=== PATIENT | male | born 1965 | race Two or more races ===

== ENCOUNTER 2016-09-12 11:23 | Inpatient (IN) | payer OTHER ==
[2016-09-12 12:04] VITALS: BMI 27.3
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
[2016-09-12] MEDS ORDERED: MENTHOL/PHENOL 1 EACH UD MM PRN (15:02)
[2016-09-12] MEDS ORDERED: guaiFENesin/D-METHORPHAN HB 10 ML UNIT-DOSE CUPS PO PRN (15:02)
[2016-09-12] MEDS ORDERED: IBUPROFEN 400 MG TABLET (FP) PO PRN (15:02)
[2016-09-12] MEDS ORDERED: P-EPHED 60MG/TRIPROLIDI 2.5MG TABLET PO PRN (15:02)
[2016-09-12] MEDS ORDERED: diphenhydrAMINE HCL 50 MG CAPSULE PO PRN (15:02)
[2016-09-12] MEDS ORDERED: ACETAMINOPHEN 325 MG TABLET (FP) PO PRN (15:02)
[2016-09-12] MEDS ORDERED: LOPERAMIDE HCL 2 MG CAPSULE PO PRN (15:02)
[2016-09-12] MEDS ORDERED: MAG HYDROX/AL HYDROX/SIMETH 30 ML UNIT-DOSE CUP PO PRN (15:02)
[2016-09-12] MEDS ORDERED: hydrOXYzine PAMOATE 50 MG CAPSULE (FP) PO PRN (15:02)
[2016-09-12] MEDS ORDERED: MAGNESIUM CITRATE 300 ML BOTTLE PO PRN (15:02)
[2016-09-12] MEDS ORDERED: chlordiazePOXIDE HCL 25 MG CAPSULE PO PRN (15:02)
[2016-09-12] MEDS ORDERED: MAGNESIUM HYDROX 2400MG/30ML ORAL SUSPENSION 30 ML CUP PO PRN (15:02)
[2016-09-12] MEDS ORDERED: ALBUTEROL SO4 6.7 GM HFA INHALER IH PRN (15:05)
[2016-09-12] MEDS ORDERED: chlordiazePOXIDE HCL 25 MG CAPSULE PO ONE (15:10)
[2016-09-12] MEDS ORDERED: amLODIPine BESYLATE 10 MG TABLET (FP) PO SCH (15:15)
[2016-09-12] MEDS: NIFEdipine E.R. 90 MG TABLET (FP) PO SCH (15:37)
[2016-09-12] MEDS: ISOSORBIDE MONONITRATE 30 MG TAB.SR.24H (FP) PO SCH (15:37)
[2016-09-12] MEDS: LISINOPRIL 10 MG TABLET (FP) PO SCH (15:37)
[2016-09-12 16:44] LABS: URINE APPEARANCE CLEAR; URINE BILIRUBIN NEGATIVE (NEGATIVE); URINE BLOOD NEGATIVE (NEGATIVE); URINE COLOR YELLOW; URINE GLUCOSE (UA) NEGATIVE (NEGATIVE); URINE KETONE NEGATIVE (NEGATIVE); URINE NITRITE NEGATIVE (NEGATIVE); URINE UROBILINOGEN NEGATIVE E.U./dl (0.2-1.0)
[2016-09-12 17:09] LABS: URINE LEUK ESTERASE 1+ (NEGATIVE); URINE PROTEIN 1+ (NEGATIVE)
[2016-09-12] MEDS: chlordiazePOXIDE HCL 25 MG CAPSULE PO SCH ×2 (17:58→22:18)
[2016-09-12] MEDS: THIAMINE HCL 100 MG TABLET (FP) PO SCH (22:17)
[2016-09-12] MEDS: ATORVASTATIN CA 40 MG TABLET (FP) PO SCH (22:17)
[2016-09-12] MEDS: hydrALAZINE HCL 50 MG TABLET (FP) PO SCH (22:17)
[2016-09-13] MEDS: chlordiazePOXIDE HCL 25 MG CAPSULE PO SCH ×4 (05:56→22:03)
--- NOTE | 2016-09-13 09:59 | PN ---
S CIWA - CIWA Score Nausea/Vomitin Muscle Tremors: 3 Anxiety: 3 Agitation: 2 Paroxysmal Sweats: 1-Minimal Palms Moist Orientation: 0-Oriented Tacttile Disturbances: 1-Very Mild Itch/Numbness Auditory Disturbances: 1-Very Mild Visual Disturbances: 1-Very Mild Sensitivity Headache: 2-Mild CIWA-Ar Total Score: 17 BHS Progress Note (SOAP) Subjective: ALERT,IRRITABLE,ANXIOUS,INTERRUPTED SLEEP,TREMOR,PAIN IN THE BODY Objective: 09/13/16 09:57 Vital Signs Temperature 97.4 F L 09/13/16 06:34 Pulse Rate 62 09/13/16 06:34 Respiratory Rate 18 09/13/16 06:34 Blood Pressure 136/82 09/13/16 06:34 O2 Sat by Pulse Oximetry (%) EKG MSR,INVERTED T IN 2,V4 TO V6 NO CHEST PAIN,NO SOB,NO DIZZINESS Laboratory Last Values Urine Color Yellow 09/12/16 15:30 Urine Appearance Clear 09/12/16 15:30 Urine pH 5.0 (5.0-8.0) 09/12/16 15:30 Ur Specific [place] 1.028 (1.001-1.035) 09/12/16 15:30 Urine Protein 1+ (NEGATIVE) H 09/12/16 15:30 Urine Glucose (UA) Negative (NEGATIVE) 09/12/16 15:30 Urine Ketones Negative (NEGATIVE) 09/12/16 15:30 Urine Blood Negative (NEGATIVE) 09/12/16 15:30 Urine Nitrite Negative (NEGATIVE) 09/12/16 15:30 Urine Bilirubin Negative (NEGATIVE) 09/12/16 15:30 Urine Urobilinogen Negative E.U./dl (0.2-1.0) 09/12/16 15:30 Ur Leukocyte Esterase 1+ (NEGATIVE) H 09/12/16 15:30 LABS PENDING Assessment: 09/13/16 09:59 WITHDRAWAL SYMPTOM Plan: CONTINUE DETOX
[2016-09-13 10:16] LABS: MCHC 32.7 g/dl (32.0-35.9); MEAN CELL VOLUME 91.9 fl (80-96); MEAN PLT VOLUME 8.8 fl (7.5-11.1); PLATELET COUNT 248 K/MM3 (134-434); RDW 14.5 % (11.9-15.9); WHITE BLOOD COUNT 11.2 K/mm3 (4.0-10.0)
[2016-09-13] MEDS: PRENATAL VITAMINS W/ FOLIC ACID TABLET (FP) PO SCH (10:25)
[2016-09-13] MEDS: NIFEdipine E.R. 90 MG TABLET (FP) PO SCH (10:26)
[2016-09-13] MEDS: LISINOPRIL 10 MG TABLET (FP) PO SCH (10:26)
[2016-09-13] MEDS: NICOTINE POLACRILEX 4 MG GUM BUC PRN (10:26)
[2016-09-13] MEDS: NICOTINE 21 MG/24 HOURS TOPICAL PATCH TD SCH (10:26)
[2016-09-13] MEDS: hydrALAZINE HCL 50 MG TABLET (FP) PO SCH ×2 (10:26→22:03)
[2016-09-13] MEDS: ISOSORBIDE MONONITRATE 30 MG TAB.SR.24H (FP) PO SCH (10:26)
[2016-09-13 10:33] LABS: ALBUMIN 3.6 g/dl (3.4-5.0); BILIRUBIN,TOTAL 0.8 mg/dL (0.2-1.0); CALCIUM 9.5 mg/dL (8.5-10.1); CREATININE 1.4 mg/dL (0.7-1.3); TOT PROT 6.9 g/dl (6.4-8.2)
--- NOTE | 2016-09-13 11:08 | EKG ---
Test Reason : Blood Pressure : / mmHG Vent. Rate : 060 BPM Atrial Rate : 060 BPM P-R Int : 154 ms QRS Dur : 114 ms QT Int : 458 ms P-R-T Axes : 070 041 147 degrees QTc Int : 458 ms NORMAL SINUS RHYTHM VOLTAGE CRITERIA FOR LEFT VENTRICULAR HYPERTROPHY T WAVE ABNORMALITY, CONSIDER INFEROLATERAL ISCHEMIA ABNORMAL ECG NO PREVIOUS ECGS AVAILABLE Confirmed by MARIPOSA SHERMAN MD ([id number]) on 09/13/2016 11:07:33 AM Referred By: Carlton Wood Confirmed By:MARIPOSA SHERMAN MD
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
[2016-09-13] MEDS: THIAMINE HCL 100 MG TABLET (FP) PO SCH (22:02)
[2016-09-13] MEDS: ATORVASTATIN CA 40 MG TABLET (FP) PO SCH (22:03)
[2016-09-13] MEDS: ZOLPIDEM TARTRATE 10 MG TABLET (PARK CARE ONLY) PO PRN (22:04)
[2016-09-14] MEDS: chlordiazePOXIDE HCL 25 MG CAPSULE PO SCH ×2 (06:13→10:32)
[2016-09-14] MEDS: LISINOPRIL 10 MG TABLET (FP) PO SCH (10:32)
[2016-09-14] MEDS: NIFEdipine E.R. 90 MG TABLET (FP) PO SCH (10:32)
[2016-09-14] MEDS: ISOSORBIDE MONONITRATE 30 MG TAB.SR.24H (FP) PO SCH (10:32)
[2016-09-14] MEDS: PRENATAL VITAMINS W/ FOLIC ACID TABLET (FP) PO SCH (10:32)
[2016-09-14] MEDS: hydrALAZINE HCL 50 MG TABLET (FP) PO SCH ×2 (10:32→22:26)
[2016-09-14] MEDS: NICOTINE 21 MG/24 HOURS TOPICAL PATCH TD SCH (10:33)
[2016-09-14] MEDS: NICOTINE POLACRILEX 4 MG GUM BUC PRN (10:33)
--- NOTE | 2016-09-14 11:12 | PN ---
S CIWA - CIWA Score Nausea/Vomitin-No Nausea/No Vomiting Muscle Tremors: 3 Anxiety: 3 Agitation: 4-Moderately Restless Paroxysmal Sweats: 3 Orientation: 0-Oriented Tacttile Disturbances: 0-None Auditory Disturbances: 0-None Visual Disturbances: 0-None Headache: 0-None Present CIWA-Ar Total Score: 13 BHS Progress Note (SOAP) Subjective: Anxiety,tremors,interrupted sleep,restless Objective: 09/14/16 11:11 Vital Signs - 8 hr 09/14/16 09/14/16 09/14/16 03:18 06:26 07:33 Temperature 98 F Pulse Rate 64 70 Respiratory 20 18 Rate Blood Pressure 160/99 147/79 09/14/16 09/14/16 07:49 09:39 Temperature 97.0 F L Pulse Rate 70 71 Respiratory 20 Rate Blood Pressure 147/79 142/88 Laboratory Tests 09/12/16 09/13/16 09/13/16 15:30 06:00 06:00 WBC 11.2 H RBC 3.79 L Hgb 11.4 L Hct 34.8 L MCV 91.9 MCHC 32.7 RDW 14.5 Plt Count 248 MPV 8.8 Sodium 144 Potassium 3.8 Chloride 107 Carbon Dioxide 27 Anion Gap 10 BUN 20 H D Creatinine 1.4 H Creat Clearance w eGFR 53.86 Random Glucose 95 Calcium 9.5 Total Bilirubin 0.8 D AST 31 D ALT 34 Alkaline Phosphatase 47 Total Protein 6.9 Albumin 3.6 Urine Color Yellow Urine Appearance Clear Urine pH 5.0 Ur Specific [place] 1.028 Urine Protein 1+ H Urine Glucose (UA) Negative Urine Ketones Negative Urine Blood Negative Urine Nitrite Negative Urine Bilirubin Negative Urine Urobilinogen Negative Ur Leukocyte Esterase 1+ H RPR Titer 09/13/16 06:00 WBC RBC Hgb Hct MCV MCHC RDW Plt Count MPV Sodium Potassium Chloride Carbon Dioxide Anion Gap BUN Creatinine Creat Clearance w eGFR Random Glucose Calcium Total Bilirubin AST ALT Alkaline Phosphatase Total Protein Albumin Urine Color Urine Appearance Urine pH Ur Specific [place] Urine Protein Urine Glucose (UA) Urine Ketones Urine Blood Urine Nitrite Urine Bilirubin Urine Urobilinogen Ur Leukocyte Esterase RPR Titer Nonreactive labs noted Assessment: 09/14/16 11:12 Withdrawal sx. Plan: Continue detox
[2016-09-14] MEDS: chlordiazePOXIDE 5 MG CAPSULE PO SCH ×2 (17:31→22:27)
[2016-09-14 22:03] VITALS: TEMP 98.4
[2016-09-14] MEDS: ZOLPIDEM TARTRATE 10 MG TABLET (PARK CARE ONLY) PO PRN (22:26)
[2016-09-14] MEDS: THIAMINE HCL 100 MG TABLET (FP) PO SCH (22:26)
[2016-09-14] MEDS: ATORVASTATIN CA 40 MG TABLET (FP) PO SCH (22:27)
[2016-09-15] MEDS: chlordiazePOXIDE 5 MG CAPSULE PO SCH (06:04)
[2016-09-15 06:30] VITALS: BP 156/92; PULSE 66
--- NOTE | 2016-09-15 12:06 | DS ---
[facility] Detox Discharge Summary Admission Date: 09/12/16 Discharge Date: 09/15/16 - History Present History: Alcohol Dependence, Cocaine Dependence Additional Comments: ADVISED PATIENT TO FOLLOW-UP WITH [facility] / REHAB MEDICAL PROVIDER AFTER DISCHARGE FROM DETOX FOR GENERAL MEDICAL ASSESSMENT AND FOR ANY ABNORMAL ADMISSION LAB VALUES. Pertinent Past History: HTN. - Physical Exam Results Vital Signs: Vital Signs Temperature 98.4 F 09/15/16 06:30 Pulse Rate 66 09/15/16 06:30 Respiratory Rate 18 09/15/16 06:30 Blood Pressure 156/92 09/15/16 06:30 O2 Sat by Pulse Oximetry (%) Pertinent Admission Physical Exam Findings: WITHDRAWAL SYMPTOMS. Laboratory Last Values WBC 11.2 K/mm3 (4.0-10.0) H 09/13/16 06:00 RBC 3.79 M/mm3 (4.00-5.60) L 09/13/16 06:00 Hgb 11.4 GM/dL (11.7-16.9) L 09/13/16 06:00 Hct 34.8 % (35.4-49) L 09/13/16 06:00 MCV 91.9 fl (80-96) 09/13/16 06:00 MCHC 32.7 g/dl (32.0-35.9) 09/13/16 06:00 RDW 14.5 % (11.9-15.9) 09/13/16 06:00 Plt Count 248 K/MM3 (134-434) 09/13/16 06:00 MPV 8.8 fl (7.5-11.1) 09/13/16 06:00 Sodium 144 mmol/L (136-145) 09/13/16 06:00 Potassium 3.8 mmol/L (3.5-5.1) 09/13/16 06:00 Chloride 107 mmol/L (98-107) 09/13/16 06:00 Carbon Dioxide 27 mmol/L (21-32) 09/13/16 06:00 Anion Gap 10 (8-16) 09/13/16 06:00 BUN 20 mg/dL (7-18) H D 09/13/16 06:00 Creatinine 1.4 mg/dL (0.7-1.3) H 09/13/16 06:00 Creat Clearance w eGFR 53.86 (>60) 09/13/16 06:00 Random Glucose 95 mg/dL (74-106) 09/13/16 06:00 Calcium 9.5 mg/dL (8.5-10.1) 09/13/16 06:00 Total Bilirubin 0.8 mg/dL (0.2-1.0) D 09/13/16 06:00 AST 31 U/L (15-37) D 09/13/16 06:00 ALT 34 U/L (12-78) 09/13/16 06:00 Alkaline Phosphatase 47 U/L (45-117) 09/13/16 06:00 Total Protein 6.9 g/dl (6.4-8.2) 09/13/16 06:00 Albumin 3.6 g/dl (3.4-5.0) 09/13/16 06:00 Urine Color Yellow 09/12/16 15:30 Urine Appearance Clear 09/12/16 15:30 Urine pH 5.0 (5.0-8.0) 09/12/16 15:30 Ur Specific [place] 1.028 (1.001-1.035) 09/12/16 15:30 Urine Protein 1+ (NEGATIVE) H 09/12/16 15:30 Urine Glucose (UA) Negative (NEGATIVE) 09/12/16 15:30 Urine Ketones Negative (NEGATIVE) 09/12/16 15:30 Urine Blood Negative (NEGATIVE) 09/12/16 15:30 Urine Nitrite Negative (NEGATIVE) 09/12/16 15:30 Urine Bilirubin Negative (NEGATIVE) 09/12/16 15:30 Urine Urobilinogen Negative E.U./dl (0.2-1.0) 09/12/16 15:30 Ur Leukocyte Esterase 1+ (NEGATIVE) H 09/12/16 15:30 RPR Titer Nonreactive (NONREACTIVE) 09/13/16 06:00 LABS NOTED. - Treatment Hospital Course: Detox Protocol Followed, Detoxed Safely, Responded well, Discharged Condition Good, Rehab Referral Accepted Patient has Accepted a Rehab Referral to: YES - [facility]. - Medication Discharge Medications: Ambulatory Orders Bupropion HCl [Wellbutrin Xl -] 150 mg PO DAILY 06/02/16 Lisinopril [Prinivil] 10 mg PO DAILY 06/02/16 Nifedipine [Nifedipine ER] 90 mg PO DAILY 06/02/16 Albuterol Sulfate Inhaler - [Ventolin Hfa Inhaler -] 2 inh PO Q4H PRN 09/12/16 Amlodipine Besylate [Norvasc -] 10 mg PO DAILY 09/12/16 Atorvastatin Ca [Lipitor] 40 mg PO HS 09/12/16 Isosorbide Mononitrate [Isosorbide Mononitrate ER] 30 mg PO DAILY 09/12/16 Multivit-Min/FA/Lycopen/Lutein [Centrum Silver Tablet] 1 each PO DAILY 09/12/16 Bupropion HCl [Wellbutrin Xl -] 150 mg PO DAILY #30 tab.sr.24h 09/13/16 Hydralazine HCl [Apresoline -] 50 mg PO BID 30 Days 09/15/16 - Diagnosis (1) Alcohol dependence with uncomplicated withdrawal Status: Acute (2) Cocaine dependence, uncomplicated Status: Acute (3) Nicotine dependence Status: Chronic Qualifiers: Nicotine product type: cigarettes Substance use status: uncomplicated Qualified Code(s): F17.210 - Nicotine dependence, cigarettes, uncomplicated (4) Hypertension Status: Chronic Qualifiers: Hypertension type: essential hypertension Qualified Code(s): I10 - Essential (primary) hypertension (5) MDD (major depressive disorder) Status: Chronic Qualifiers: Major depression recurrence: recurrent Active/Remission status: remission status unspecified Qualified Code(s): F33.9 - Major depressive disorder, recurrent, unspecified (6) PTSD (post-traumatic stress disorder) Status: Chronic (7) Insomnia Status: Acute - AMA Did Patient Leave Against Medical Advice: No
[2016-09-15] MEDS ORDERED: chlordiazePOXIDE HCL 10 MG CAPSULE PO SCH (17:00)
== END 2016-09-15 10:32 | disposition home or self-care (01) | DRG 774 ==
LOC: YASAS 11:23 → Y3N 13:40
PROVIDERS: ADMIT Internal Medicine; ATTEND Internal Medicine
PROC: HZ2ZZZZ Detoxification Services for Substance Abuse Treatment (ICD-10-PCS; principal; 2016-09-15)
DX: F10.230 Alcohol dependence with withdrawal, uncomplicated (principal); F14.20 Cocaine dependence, uncomplicated; F17.210 Nicotine dependence, cigarettes, uncomplicated; F33.9 Major depressive disorder, recurrent, unspecified; F43.10 Post-traumatic stress disorder, unspecified; G47.00 Insomnia, unspecified; I10 Essential (primary) hypertension
CPT/HCPCS: 36415; 80053; 81003; 81015; 85027; 86593; 93005; 93010

== ENCOUNTER 2017-01-22 15:16 | Inpatient (IN) | payer OTHER ==
[2017-01-22 17:03] VITALS: BMI 25.3
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
[2017-01-22] MEDS ORDERED: MENTHOL/PHENOL 1 EACH UD MM PRN (21:02)
[2017-01-22] MEDS ORDERED: guaiFENesin/D-METHORPHAN HB 10 ML UNIT-DOSE CUPS PO PRN (21:02)
[2017-01-22] MEDS ORDERED: IBUPROFEN 400 MG TABLET (FP) PO PRN (21:02)
[2017-01-22] MEDS ORDERED: ACETAMINOPHEN 325 MG TABLET (FP) PO PRN (21:02)
[2017-01-22] MEDS ORDERED: LOPERAMIDE HCL 2 MG CAPSULE PO PRN (21:02)
[2017-01-22] MEDS ORDERED: MAG HYDROX/AL HYDROX/SIMETH 30 ML UNIT-DOSE CUP PO PRN (21:02)
[2017-01-22] MEDS ORDERED: MAGNESIUM HYDROX 2400MG/30ML ORAL SUSPENSION 30 ML CUP PO PRN (21:02)
[2017-01-22] MEDS ORDERED: chlordiazePOXIDE HCL 25 MG CAPSULE PO PRN (21:02)
[2017-01-22] MEDS ORDERED: MAGNESIUM CITRATE 300 ML BOTTLE PO PRN (21:02)
[2017-01-22] MEDS ORDERED: P-EPHED 60MG/TRIPROLIDI 2.5MG TABLET PO PRN (21:02)
[2017-01-22] MEDS ORDERED: NICOTINE POLACRILEX 2 MG GUM BC PRN (21:09)
[2017-01-22] MEDS ORDERED: hydrOXYzine PAMOATE 50 MG CAPSULE (FP) PO PRN (21:09)
[2017-01-22] MEDS: AMOXICILLIN 500 MG CAPSULE (FP) PO SCH (22:39)
[2017-01-22] MEDS: THIAMINE HCL 100 MG TABLET (FP) PO SCH (22:39)
[2017-01-22] MEDS: diphenhydrAMINE HCL 50 MG CAPSULE PO PRN (22:39)
[2017-01-22] MEDS: chlordiazePOXIDE HCL 25 MG CAPSULE PO SCH (22:39)
[2017-01-22] MEDS: NIFEdipine E.R. 30 MG TABLET (FP) PO SCH (22:39)
[2017-01-23] MEDS: LISINOPRIL 20 MG TABLET (FP) PO SCH (06:02)
[2017-01-23] MEDS: chlordiazePOXIDE HCL 25 MG CAPSULE PO SCH ×5 (06:02→22:37)
[2017-01-23] MEDS: FUROSEMIDE 20 MG TABLET (FP) PO SCH (07:30)
[2017-01-23] MEDS: AMOXICILLIN 500 MG CAPSULE (FP) PO SCH ×4 (07:30→22:37)
[2017-01-23] MEDS: NIFEdipine E.R 60 MG TABLET (UD) PO SCH (07:31)
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
[2017-01-23] MEDS: PRENATAL VITAMINS W/ FOLIC ACID TABLET (FP) PO SCH (10:16)
[2017-01-23 10:34] LABS: MCH 30.8 pg (25.7-33.7); MEAN CELL VOLUME 90.4 fl (80-96); MEAN PLT VOLUME 8.3 fl (7.5-11.1); PLATELET COUNT 250 K/MM3 (134-434); RDW 14.5 % (11.9-15.9); WHITE BLOOD COUNT 9.3 K/mm3 (4.0-10.0)
[2017-01-23 10:37] LABS: ALBUMIN 2.9 g/dl (3.4-5.0); ANION GAP 6 (8-16); CALCIUM 8.8 mg/dL (8.5-10.1); CO2 29 mmol/L (21-32); CREATININE 1.3 mg/dL (0.7-1.3); GLUCOSE,RANDOM 82 mg/dL (74-106); SGOT/AST 20 U/L (15-37); SGPT/ALT 23 U/L (12-78)
[2017-01-23 10:39] LABS: ALK PHOS 44 U/L (45-117); BILIRUBIN,TOTAL 0.6 mg/dL (0.2-1.0); TOT PROT 6.1 g/dl (6.4-8.2)
--- NOTE | 2017-01-23 10:51 | PN ---
S CIWA - CIWA Score Nausea/Vomitin Muscle Tremors: 4-Moderate,w/Arms Extend Anxiety: 3 Agitation: 4-Moderately Restless Paroxysmal Sweats: 3 Orientation: 0-Oriented Tacttile Disturbances: 0-None Auditory Disturbances: 0-None Visual Disturbances: 0-None Headache: 0-None Present CIWA-Ar Total Score: 16 S Progress Note (SOAP) Subjective: Anxiety,tremors,sweating,interrupted sleep,restless Objective: 01/23/17 10:50 Vital Signs - 8 hr 01/23/17 01/23/17 03:30 09:55 Temperature 97.9 F Pulse Rate 69 Respiratory 18 18 Rate Blood Pressure 149/89 Laboratory Last Values WBC 9.3 K/mm3 (4.0-10.0) 01/23/17 06:30 RBC 3.87 M/mm3 (4.00-5.60) L 01/23/17 06:30 Hgb 11.9 GM/dL (11.7-16.9) 01/23/17 06:30 Hct 35.0 % (35.4-49) L 01/23/17 06:30 MCV 90.4 fl (80-96) 01/23/17 06:30 MCH 30.8 pg (25.7-33.7) 01/23/17 06:30 MCHC 34.0 g/dl (32.0-35.9) 01/23/17 06:30 RDW 14.5 % (11.9-15.9) 01/23/17 06:30 Plt Count 250 K/MM3 (134-434) 01/23/17 06:30 MPV 8.3 fl (7.5-11.1) 01/23/17 06:30 Sodium 142 mmol/L (136-145) 01/23/17 06:30 Potassium 4.1 mmol/L (3.5-5.1) 01/23/17 06:30 Chloride 107 mmol/L (98-107) 01/23/17 06:30 Carbon Dioxide 29 mmol/L (21-32) 01/23/17 06:30 Anion Gap 6 (8-16) L 01/23/17 06:30 BUN 23 mg/dL (7-18) H 01/23/17 06:30 Creatinine 1.3 mg/dL (0.7-1.3) 01/23/17 06:30 Creat Clearance w eGFR 58.67 (>60) 01/23/17 06:30 Random Glucose 82 mg/dL (74-106) 01/23/17 06:30 Calcium 8.8 mg/dL (8.5-10.1) 01/23/17 06:30 Total Bilirubin 0.6 mg/dL (0.2-1.0) D 01/23/17 06:30 AST 20 U/L (15-37) D 01/23/17 06:30 ALT 23 U/L (12-78) D 01/23/17 06:30 Alkaline Phosphatase 44 U/L (45-117) L 01/23/17 06:30 Total Protein 6.1 g/dl (6.4-8.2) L 01/23/17 06:30 Albumin 2.9 g/dl (3.4-5.0) L 01/23/17 06:30 labs noted Assessment: 01/23/17 10:51 Withdrawal sx. Plan: Continue detox
--- NOTE | 2017-01-23 14:07 | EKG ---
Test Reason : Blood Pressure : / mmHG Vent. Rate : 061 BPM Atrial Rate : 061 BPM P-R Int : 148 ms QRS Dur : 104 ms QT Int : 450 ms P-R-T Axes : 066 054 242 degrees QTc Int : 453 ms NORMAL SINUS RHYTHM POSSIBLE LEFT ATRIAL ENLARGEMENT LEFT VENTRICULAR HYPERTROPHY ABNORMAL ECG WHEN COMPARED WITH ECG OF 12-SEP-2016 14:43, T WAVE INVERSION MORE EVIDENT IN INFERIOR LEADS AND V3 CL Confirmed by REHAN ZUNIGA MD ([id number]) on 01/23/2017 2:07:34 PM Referred By: Carlton Wood Confirmed By:REHAN ZUNIGA MD
--- NOTE | 2017-01-23 14:23 | EKG ---
Test Reason : Blood Pressure : / mmHG Vent. Rate : 067 BPM Atrial Rate : 067 BPM P-R Int : 142 ms QRS Dur : 098 ms QT Int : 418 ms P-R-T Axes : 062 043 259 degrees QTc Int : 441 ms NORMAL SINUS RHYTHM POSSIBLE LEFT ATRIAL ENLARGEMENT LEFT VENTRICULAR HYPERTROPHY T WAVE ABNORMALITY, CONSIDER INFEROLATERAL ISCHEMIA ABNORMAL ECG WHEN COMPARED WITH ECG OF 22-JAN-2017 21:09, T WAVES ARE UPRIGHT IN V3 Confirmed by REHAN ZUNIGA MD ([id number]) on 01/23/2017 2:23:37 PM Referred By: Carlton Wood Confirmed By:REHAN ZUNIGA MD
[2017-01-23] MEDS: THIAMINE HCL 100 MG TABLET (FP) PO SCH ×3 (22:30→22:46)
[2017-01-23] MEDS: NIFEdipine E.R. 30 MG TABLET (FP) PO SCH ×3 (22:30→22:46)
[2017-01-24] MEDS: AMOXICILLIN 500 MG CAPSULE (FP) PO SCH ×3 (06:21→22:17)
[2017-01-24] MEDS: chlordiazePOXIDE HCL 25 MG CAPSULE PO SCH ×3 (06:22→17:21)
[2017-01-24] MEDS: LISINOPRIL 20 MG TABLET (FP) PO SCH ×2 (06:22→22:17)
[2017-01-24] MEDS: FUROSEMIDE 20 MG TABLET (FP) PO SCH (06:22)
[2017-01-24] MEDS: NIFEdipine E.R 60 MG TABLET (UD) PO SCH (06:22)
[2017-01-24] MEDS: PRENATAL VITAMINS W/ FOLIC ACID TABLET (FP) PO SCH (10:28)
--- NOTE | 2017-01-24 12:47 | PN ---
S CIWA - CIWA Score Nausea/Vomitin-Int. Nausea w/Dry Heave Muscle Tremors: 2 Anxiety: 4-Mod. Anxious/Guarded Agitation: 0-Normal Activity Paroxysmal Sweats: 3 Orientation: 2-Disoriented Date<2 days Tacttile Disturbances: 2-Mild Itch/Numbness/Burn Auditory Disturbances: 0-None Visual Disturbances: 0-None Headache: 2-Mild CIWA-Ar Total Score: 19 BHS Progress Note (SOAP) Subjective: Sweating, Nausea, H/A, Stomach cramping. Objective: PT. A & O X 2 (DISORIENTED ABOUT DAY /DATE). NO ACUTE DISTRESS. PT. DENIES CHEST PAIN. 01/24/17 12:44 Vital Signs Temperature 97.0 F L 01/24/17 09:04 Pulse Rate 58 L 01/24/17 09:04 Respiratory Rate 18 01/24/17 09:04 Blood Pressure 147/91 01/24/17 09:04 O2 Sat by Pulse Oximetry (%) Laboratory Tests 01/23/17 01/23/17 01/23/17 06:30 06:30 06:30 WBC 9.3 RBC 3.87 L Hgb 11.9 Hct 35.0 L MCV 90.4 MCH 30.8 MCHC 34.0 RDW 14.5 Plt Count 250 MPV 8.3 Sodium 142 Potassium 4.1 Chloride 107 Carbon Dioxide 29 Anion Gap 6 L BUN 23 H Creatinine 1.3 Creat Clearance w eGFR 58.67 Random Glucose 82 Calcium 8.8 Total Bilirubin 0.6 D AST 20 D ALT 23 D Alkaline Phosphatase 44 L Total Protein 6.1 L Albumin 2.9 L RPR Titer Nonreactive LABS NOTED. 01/24/17 14:21 Assessment: 01/24/17 12:45 WITHDRAWAL SYMPTOMS. Plan: CONTINUE DETOX. CONTINUE TO MONITOR BP. PATIENT DECLINING TO SUBMIT URINE FOR ADMISSION UA. PATIENT ENCOURAGED TO RE- CONSIDER AND SUBMIT URINE.
[2017-01-24] MEDS: THIAMINE HCL 100 MG TABLET (FP) PO SCH (22:16)
[2017-01-24] MEDS: diphenhydrAMINE HCL 50 MG CAPSULE PO PRN (22:17)
[2017-01-24] MEDS: chlordiazePOXIDE 5 MG CAPSULE PO SCH (22:17)
[2017-01-24] MEDS: NIFEdipine E.R. 30 MG TABLET (FP) PO SCH (22:17)
[2017-01-25] MEDS: FUROSEMIDE 20 MG TABLET (FP) PO SCH (06:13)
[2017-01-25] MEDS: LISINOPRIL 20 MG TABLET (FP) PO SCH ×2 (06:13→22:14)
[2017-01-25] MEDS: chlordiazePOXIDE 5 MG CAPSULE PO SCH ×3 (06:14→17:44)
[2017-01-25] MEDS: AMOXICILLIN 500 MG CAPSULE (FP) PO SCH ×3 (06:14→22:14)
[2017-01-25] MEDS: NIFEdipine E.R 60 MG TABLET (UD) PO SCH (06:14)
[2017-01-25] MEDS: PRENATAL VITAMINS W/ FOLIC ACID TABLET (FP) PO SCH (10:44)
--- NOTE | 2017-01-25 13:05 | PN ---
BHS Progress Note (SOAP) Subjective: Tremors, Sweating, Stomach Cramping. Objective: PT. A & O X 3, OBSERVED AMBULATING ON UNIT. NO ACUTE DISTRESS. PT. DENIES CHEST PAIN. 01/25/17 13:03 Vital Signs Temperature 96.7 F L 01/25/17 09:38 Pulse Rate 67 01/25/17 09:38 Respiratory Rate 18 01/25/17 09:38 Blood Pressure 155/106 01/25/17 09:38 O2 Sat by Pulse Oximetry (%) Laboratory Tests 01/23/17 01/23/17 01/23/17 06:30 06:30 06:30 WBC 9.3 RBC 3.87 L Hgb 11.9 Hct 35.0 L MCV 90.4 MCH 30.8 MCHC 34.0 RDW 14.5 Plt Count 250 MPV 8.3 Sodium 142 Potassium 4.1 Chloride 107 Carbon Dioxide 29 Anion Gap 6 L BUN 23 H Creatinine 1.3 Creat Clearance w eGFR 58.67 Random Glucose 82 Calcium 8.8 Total Bilirubin 0.6 D AST 20 D ALT 23 D Alkaline Phosphatase 44 L Total Protein 6.1 L Albumin 2.9 L RPR Titer Nonreactive LABS NOTED. UA RESULTS PENDING. 01/25/17 13:04 Assessment: 01/25/17 13:04 WITHDRAWAL SYMPTOMS. Plan: CONTINUE DETOX.
[2017-01-25 15:26] LABS: URINE APPEARANCE CLEAR; URINE BILIRUBIN NEGATIVE (NEGATIVE); URINE BLOOD NEGATIVE (NEGATIVE); URINE COLOR COLORLESS; URINE GLUCOSE (UA) 1+ (NEGATIVE); URINE KETONE NEGATIVE (NEGATIVE); URINE LEUK ESTERASE NEGATIVE (NEGATIVE); URINE NITRITE NEGATIVE (NEGATIVE); URINE PROTEIN NEGATIVE (NEGATIVE); URINE UROBILINOGEN NEGATIVE mg/dL (0.2-1.0)
[2017-01-25] MEDS: NIFEdipine E.R. 30 MG TABLET (FP) PO SCH (22:14)
[2017-01-25] MEDS: chlordiazePOXIDE HCL 10 MG CAPSULE PO SCH (22:14)
[2017-01-25] MEDS: THIAMINE HCL 100 MG TABLET (FP) PO SCH (22:14)
[2017-01-25] MEDS: diphenhydrAMINE HCL 50 MG CAPSULE PO PRN (22:15)
[2017-01-26] MEDS: NIFEdipine E.R 60 MG TABLET (UD) PO SCH (05:57)
[2017-01-26] MEDS: LISINOPRIL 20 MG TABLET (FP) PO SCH (05:57)
[2017-01-26] MEDS: FUROSEMIDE 20 MG TABLET (FP) PO SCH (05:57)
[2017-01-26] MEDS: AMOXICILLIN 500 MG CAPSULE (FP) PO SCH (05:57)
[2017-01-26] MEDS: chlordiazePOXIDE HCL 10 MG CAPSULE PO SCH (06:10)
[2017-01-26 06:21] VITALS: BP 167/102; PULSE 59; TEMP 97.5
--- NOTE | 2017-01-26 12:08 | DS ---
[facility] Detox Discharge Summary Admission Date: 01/22/17 Discharge Date: 01/26/17 - History Present History: Alcohol Dependence, Cannabis Dependence, Cocaine Dependence Additional Comments: PATIENT GOING TO [facility]. PATIENT ADVISED TO FOLLOW-UP THERE FOR AFTERCARE PER DISCHARGE ARRANGEMENT. PATIENT REPORTS THAT HE DOES CURRENTLY HAVE A PRIMARY CARE MEDICAL PROVIDER. PATIENT ADVISED TO FOLLOW-UP WITH THAT MEDICAL PROVIDER FOR GENERAL MEDICAL ASSESSMENT AND FOR HISTORY OF HTN AND ANGINA. PATIENT ALSO ADVISED TO COMPLETE FULL COURSE OF AMOXICILLIN THAT HE IS CURRRENTLY TAKING FOR DENTAL ABSCESS AND TO FOLLOW-UP WITH DENTIST FOR FURTHER EVALUATION AFTER DISCHARGE FROM DETOX. PATIENT VERBALIZED UNDERSTANDING OF ALL INSTRUCTIONS / RECOMMENDATIONS. Pertinent Past History: Asthma, HTN, Angina, PTSD, Insomnia, H/O Dental Abscess, Varicose Veins of Bilateral Lower Extremities. - Physical Exam Results Vital Signs: Vital Signs Temperature 97.5 F L 01/26/17 06:21 Pulse Rate 59 L 01/26/17 06:21 Respiratory Rate 18 01/26/17 06:21 Blood Pressure 167/102 01/26/17 06:21 O2 Sat by Pulse Oximetry (%) Pertinent Admission Physical Exam Findings: WITHDRAWAL SYMPTOMS. Laboratory Tests 01/23/17 01/23/17 01/23/17 06:30 06:30 06:30 WBC 9.3 RBC 3.87 L Hgb 11.9 Hct 35.0 L MCV 90.4 MCH 30.8 MCHC 34.0 RDW 14.5 Plt Count 250 MPV 8.3 Sodium 142 Potassium 4.1 Chloride 107 Carbon Dioxide 29 Anion Gap 6 L BUN 23 H Creatinine 1.3 Creat Clearance w eGFR 58.67 Random Glucose 82 Calcium 8.8 Total Bilirubin 0.6 D AST 20 D ALT 23 D Alkaline Phosphatase 44 L Total Protein 6.1 L Albumin 2.9 L Urine Color Urine Appearance Urine pH Ur Specific Dolphin Urine Protein Urine Glucose (UA) Urine Ketones Urine Blood Urine Nitrite Urine Bilirubin Urine Urobilinogen Ur Leukocyte Esterase RPR Titer Nonreactive 01/25/17 10:00 WBC RBC Hgb Hct MCV MCH MCHC RDW Plt Count MPV Sodium Potassium Chloride Carbon Dioxide Anion Gap BUN Creatinine Creat Clearance w eGFR Random Glucose Calcium Total Bilirubin AST ALT Alkaline Phosphatase Total Protein Albumin Urine Color Colorless Urine Appearance Clear Urine pH 6.0 Ur Specific [place]olphin 1.015 Urine Protein Negative Urine Glucose (UA) 1+ H Urine Ketones Negative Urine Blood Negative Urine Nitrite Negative Urine Bilirubin Negative Urine Urobilinogen Negative Ur Leukocyte Esterase Negative RPR Titer LABS NOTED. - Treatment Hospital Course: Detox Protocol Followed, Detoxed Safely, Responded well, Discharged Condition Good, Rehab Referral Accepted - Medication Discharge Medications: Ambulatory Orders Amoxicillin - [Amoxicillin 500mg Capsule -] 500 mg PO TID 01/22/17 Nifedipine [Procardia Capsule -] 30 mg PO HS 01/22/17 Bupropion HCl [Wellbutrin Xl -] 150 mg PO DAILY #30 tab.sr.24h 01/24/17 Furosemide [Lasix -] 20 mg PO DAILY #30 mg 01/26/17 Lisinopril [Prinivil] 20 mg PO DAILY #30 mg 01/26/17 Nifedipine [Procardia Xl] 30 mg PO ASDIR #90 mg 01/26/17 - Diagnosis (1) Alcohol dependence with uncomplicated withdrawal Status: Acute (2) Cocaine dependence, uncomplicated Status: Acute (3) H/O dental abscess Status: Acute (4) Insomnia Status: Acute Qualifiers: Insomnia type: unspecified Qualified Code(s): G47.00 - Insomnia, unspecified (5) Marihuana dependence Status: Acute (6) Nicotine dependence Status: Chronic Qualifiers: Nicotine product type: cigarettes Substance use status: uncomplicated Qualified Code(s): F17.210 - Nicotine dependence, cigarettes, uncomplicated (7) Substance induced mood disorder Status: Acute (8) Varicose veins of both lower extremities Status: Chronic (9) Asthma Status: Chronic Qualifiers: Asthma severity: mild intermittent Asthma complication type: uncomplicated Qualified Code(s): J45.20 - Mild intermittent asthma, uncomplicated (10) Hypertension Status: Chronic Qualifiers: Hypertension type: essential hypertension Qualified Code(s): I10 - Essential (primary) hypertension (11) PTSD (post-traumatic stress disorder) Status: Chronic - AMA Did Patient Leave Against Medical Advice: No
== END 2017-01-26 08:58 | disposition home or self-care (01) | DRG 774 ==
LOC: YASAS 15:16 → Y3N 21:19
PROVIDERS: ADMIT Internal Medicine; ATTEND Internal Medicine
PROC: HZ2ZZZZ Detoxification Services for Substance Abuse Treatment (ICD-10-PCS; principal; 2017-01-22)
DX: F10.230 Alcohol dependence with withdrawal, uncomplicated (principal); F14.20 Cocaine dependence, uncomplicated; F12.20 Cannabis dependence, uncomplicated; F17.210 Nicotine dependence, cigarettes, uncomplicated; F19.24 Other psychoactive substance dependence with psychoactive substance-induced mood disorder; F43.10 Post-traumatic stress disorder, unspecified; F33.9 Major depressive disorder, recurrent, unspecified; I83.93 Asymptomatic varicose veins of bilateral lower extremities; J45.20 Mild intermittent asthma, uncomplicated; I10 Essential (primary) hypertension; I20.9 Angina pectoris, unspecified; K04.7 Periapical abscess without sinus; K76.0 Fatty (change of) liver, not elsewhere classified; Z86.69 Personal history of other diseases of the nervous system and sense organs; Z87.438 Personal history of other diseases of male genital organs
CPT/HCPCS: 36415; 80053; 81003; 85027; 86593; 93005; 93010

== ENCOUNTER 2017-05-22 13:51 | Inpatient (IN) | payer OTHER ==
[2017-05-22 15:21] VITALS: BMI 27.0
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
[2017-05-22] MEDS ORDERED: LOPERAMIDE HCL 2 MG CAPSULE PO PRN (20:47)
[2017-05-22] MEDS ORDERED: guaiFENesin/D-METHORPHAN HB 10 ML UNIT-DOSE CUPS PO PRN (20:47)
[2017-05-22] MEDS ORDERED: NICOTINE POLACRILEX 2 MG GUM BC PRN (20:47)
[2017-05-22] MEDS ORDERED: MENTHOL/PHENOL 1 EACH UD MM PRN (20:47)
[2017-05-22] MEDS ORDERED: P-EPHED 60MG/TRIPROLIDI 2.5MG TABLET PO PRN (20:47)
[2017-05-22] MEDS ORDERED: MAGNESIUM HYDROX 2400MG/30ML ORAL SUSPENSION 30 ML CUP PO PRN (20:47)
[2017-05-22] MEDS ORDERED: MAGNESIUM CITRATE 300 ML BOTTLE PO PRN (20:47)
[2017-05-22] MEDS ORDERED: NICOTINE 14 MG/24 HOURS TOPICAL PATCH TD PRN (20:47)
[2017-05-22] MEDS ORDERED: ACETAMINOPHEN 325 MG TABLET (FP) PO PRN (20:47)
[2017-05-22] MEDS ORDERED: MAG HYDROX/AL HYDROX/SIMETH 30 ML UNIT-DOSE CUP PO PRN (20:47)
[2017-05-22] MEDS ORDERED: chlordiazePOXIDE HCL 25 MG CAPSULE PO PRN (20:47)
[2017-05-22] MEDS ORDERED: ALBUTEROL SO4 18 GM HFA INHALER IH PRN (20:55)
[2017-05-22] MEDS: THIAMINE HCL 100 MG TABLET (FP) PO SCH (21:35)
[2017-05-22] MEDS: SENNOSIDES 8.6MG TABLET (FP) PO SCH ×2 (21:35→22:52)
[2017-05-22] MEDS: chlordiazePOXIDE HCL 25 MG CAPSULE PO SCH (22:52)
[2017-05-23] MEDS: chlordiazePOXIDE HCL 25 MG CAPSULE PO SCH ×4 (05:21→22:35)
[2017-05-23] MEDS ORDERED: ISOSORBIDE MONONITRATE 60 MG TAB.SR.24H (FP) PO SCH (08:00)
[2017-05-23] MEDS ORDERED: NIFEdipine 10 MG CAPSULE (FP) PO SCH (08:00)
[2017-05-23] MEDS ORDERED: CYCLOBENZAPRINE HCL 10 MG TABLET (FP) PO PRN (09:36)
[2017-05-23 10:11] LABS: MCH 29.7 pg (25.7-33.7); MCHC 32.7 g/dl (32.0-35.9); MEAN CELL VOLUME 91.1 fl (80-96); MEAN PLT VOLUME 8.7 fl (7.5-11.1); PLATELET COUNT 238 K/MM3 (134-434); RDW 14.1 % (11.9-15.9); WHITE BLOOD COUNT 12.7 K/mm3 (4.0-10.0)
[2017-05-23] MEDS: PRENATAL VITAMINS W/ FOLIC ACID TABLET (FP) PO SCH (10:18)
[2017-05-23] MEDS: LISINOPRIL 20 MG TABLET (FP) PO SCH (10:18)
[2017-05-23] MEDS: NIFEdipine E.R. 90 MG TABLET (FP) PO SCH (10:18)
[2017-05-23] MEDS: ASPIRIN 81 MG CHEWABLE TABLETS PO SCH (10:18)
[2017-05-23] MEDS: ISOSORBIDE MONONITRATE 60 MG TAB.SR.24H (FP) PO SCH (10:19)
[2017-05-23 10:44] LABS: PH,URINE 5.5 (5.0-8.0); URINE APPEARANCE CLEAR; URINE BILIRUBIN NEGATIVE (NEGATIVE); URINE BLOOD NEGATIVE (NEGATIVE); URINE COLOR LT. YELLOW; URINE GLUCOSE (UA) TRACE (NEGATIVE); URINE KETONE NEGATIVE (NEGATIVE); URINE NITRITE NEGATIVE (NEGATIVE); URINE PROTEIN NEGATIVE (NEGATIVE); URINE UROBILINOGEN 0.2 mg/dL (0.2-1.0)
[2017-05-23 10:54] LABS: ALK PHOS 49 U/L (45-117); ANION GAP 5 (8-16); BILIRUBIN,TOTAL 0.8 mg/dL (0.2-1.0); CALCIUM 8.7 mg/dL (8.5-10.1); CO2 28 mmol/L (21-32); CREATININE 1.4 mg/dL (0.7-1.3); GLUCOSE,RANDOM 86 mg/dL (74-106); SGOT/AST 15 U/L (15-37); SGPT/ALT 17 U/L (12-78); TOT PROT 6.1 g/dl (6.4-8.2)
--- NOTE | 2017-05-23 11:03 | PN ---
[facility] CIWA - CIWA Score Nausea/Vomitin-No Nausea/No Vomiting Muscle Tremors: 4-Moderate,w/Arms Extend Anxiety: 4-Mod. Anxious/Guarded Agitation: 4-Moderately Restless Paroxysmal Sweats: 1-Minimal Palms Moist Orientation: 0-Oriented Tacttile Disturbances: 3-Moderate Itch/Numb/Burn Auditory Disturbances: 0-None Visual Disturbances: 0-None Headache: 0-None Present CIWA-Ar Total Score: 16 S Progress Note (SOAP) Subjective: ANXIETY,BODY ACHES,DIARRHEA, INTERMITTENT SLEEP. PT REPORTS BEREAVEMENT X 3 DAYS OF SIGNIFICANT OTHER AND FEELS DOWN IN SPIRIT. REQUESTS TO SEE PSYCH . ALERT O X 3. Objective: 05/23/17 11:00 Vital Signs Temperature 97.4 F L 05/23/17 09:05 Pulse Rate 76 05/23/17 09:05 Respiratory Rate 18 05/23/17 09:05 Blood Pressure 142/87 05/23/17 09:05 O2 Sat by Pulse Oximetry (%) Laboratory Last Values WBC 12.7 K/mm3 (4.0-10.0) H D 05/23/17 07:00 RBC 3.74 M/mm3 (4.00-5.60) L 05/23/17 07:00 Hgb 11.1 GM/dL (11.7-16.9) L 05/23/17 07:00 Hct 34.1 % (35.4-49) L 05/23/17 07:00 MCV 91.1 fl (80-96) 05/23/17 07:00 MCH 29.7 pg (25.7-33.7) 05/23/17 07:00 MCHC 32.7 g/dl (32.0-35.9) 05/23/17 07:00 RDW 14.1 % (11.9-15.9) 05/23/17 07:00 Plt Count 238 K/MM3 (134-434) 05/23/17 07:00 MPV 8.7 fl (7.5-11.1) 05/23/17 07:00 Sodium 142 mmol/L (136-145) 05/23/17 07:00 Potassium 4.0 mmol/L (3.5-5.1) 05/23/17 07:00 Chloride 109 mmol/L (98-107) H 05/23/17 07:00 Carbon Dioxide 28 mmol/L (21-32) 05/23/17 07:00 Anion Gap 5 (8-16) L 05/23/17 07:00 BUN 22 mg/dL (7-18) H 05/23/17 07:00 Creatinine 1.4 mg/dL (0.7-1.3) H 05/23/17 07:00 Creat Clearance w eGFR 53.86 (>60) 05/23/17 07:00 Random Glucose 86 mg/dL (74-106) 05/23/17 07:00 Calcium 8.7 mg/dL (8.5-10.1) 05/23/17 07:00 Total Bilirubin 0.8 mg/dL (0.2-1.0) D 05/23/17 07:00 AST 15 U/L (15-37) D 05/23/17 07:00 ALT 17 U/L (12-78) D 05/23/17 07:00 Alkaline Phosphatase 49 U/L (45-117) 05/23/17 07:00 Total Protein 6.1 g/dl (6.4-8.2) L 05/23/17 07:00 Albumin 3.0 g/dl (3.4-5.0) L 05/23/17 07:00 Urine Color Lt. yellow 05/22/17 00:00 Urine Appearance Clear 05/22/17 00:00 Urine pH 5.5 (5.0-8.0) 05/22/17 00:00 Ur Specific [place] 1.020 (1.001-1.035) 05/22/17 00:00 Urine Protein Negative (NEGATIVE) 05/22/17 00:00 Urine Glucose (UA) Trace (NEGATIVE) H 05/22/17 00:00 Urine Ketones Negative (NEGATIVE) 05/22/17 00:00 Urine Blood Negative (NEGATIVE) 05/22/17 00:00 Urine Nitrite Negative (NEGATIVE) 05/22/17 00:00 Urine Bilirubin Negative (NEGATIVE) 05/22/17 00:00 Urine Urobilinogen 0.2 mg/dL (0.2-1.0) 05/22/17 00:00 Assessment: 05/23/17 11:01 WITHDRAWAL SX Plan: CONTINUE DETOX
--- NOTE | 2017-05-23 12:47 | EKG ---
Test Reason : Blood Pressure : / mmHG Vent. Rate : 075 BPM Atrial Rate : 075 BPM P-R Int : 142 ms QRS Dur : 090 ms QT Int : 422 ms P-R-T Axes : 067 044 250 degrees QTc Int : 471 ms SINUS RHYTHM WITH OCCASIONAL PREMATURE VENTRICULAR COMPLEXES POSSIBLE LEFT ATRIAL ENLARGEMENT LEFT VENTRICULAR HYPERTROPHY MARKED T WAVE ABNORMALITY, CONSIDER ANTEROLATERAL ISCHEMIA PROLONGED QT ABNORMAL ECG WHEN COMPARED WITH ECG OF 23-JAN-2017 08:10, PREMATURE VENTRICULAR COMPLEXES ARE NOW PRESENT Confirmed by MARIPOSA SHERMAN MD ([id number]) on 05/23/2017 12:46:54 PM Referred By: Confirmed By:MARIPOSA SHERMAN MD
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
[2017-05-23 20:25] LABS: URINE LEUK ESTERASE Negative (NEGATIVE)
[2017-05-23] MEDS: SENNOSIDES 8.6MG TABLET (FP) PO SCH (22:35)
[2017-05-23] MEDS: THIAMINE HCL 100 MG TABLET (FP) PO SCH (22:35)
--- NOTE | 2017-05-23 23:25 | PN ---
[facility] Progress Note Note: received nurse call that the patient refuses librium 25 mg one dose today
[2017-05-24] MEDS: chlordiazePOXIDE HCL 25 MG CAPSULE PO SCH ×3 (05:34→17:16)
[2017-05-24] MEDS: NIFEdipine E.R. 90 MG TABLET (FP) PO SCH (09:10)
[2017-05-24] MEDS: ISOSORBIDE MONONITRATE 60 MG TAB.SR.24H (FP) PO SCH (09:10)
[2017-05-24] MEDS: LISINOPRIL 20 MG TABLET (FP) PO SCH (09:10)
[2017-05-24] MEDS: PRENATAL VITAMINS W/ FOLIC ACID TABLET (FP) PO SCH (09:10)
[2017-05-24] MEDS: ASPIRIN 81 MG CHEWABLE TABLETS PO SCH (09:10)
--- NOTE | 2017-05-24 10:45 | PN ---
[facility] CIWA - CIWA Score Nausea/Vomitin-No Nausea/No Vomiting Muscle Tremors: 4-Moderate,w/Arms Extend Anxiety: 4-Mod. Anxious/Guarded Agitation: 4-Moderately Restless Paroxysmal Sweats: 1-Minimal Palms Moist Orientation: 0-Oriented Tacttile Disturbances: 3-Moderate Itch/Numb/Burn Auditory Disturbances: 0-None Visual Disturbances: 0-None Headache: 0-None Present CIWA-Ar Total Score: 16 S Progress Note (SOAP) Subjective: ANXIETY, SWEATS,TREMORS, IRRITABILITY, INTERMITTENT SLEEP Objective: 05/24/17 10:55 Vital Signs Temperature 97.9 F 05/24/17 09:08 Pulse Rate 61 05/24/17 09:08 Respiratory Rate 18 05/24/17 09:08 Blood Pressure 152/98 05/24/17 09:08 O2 Sat by Pulse Oximetry (%) Laboratory Last Values WBC 12.7 K/mm3 (4.0-10.0) H D 05/23/17 07:00 RBC 3.74 M/mm3 (4.00-5.60) L 05/23/17 07:00 Hgb 11.1 GM/dL (11.7-16.9) L 05/23/17 07:00 Hct 34.1 % (35.4-49) L 05/23/17 07:00 MCV 91.1 fl (80-96) 05/23/17 07:00 MCH 29.7 pg (25.7-33.7) 05/23/17 07:00 MCHC 32.7 g/dl (32.0-35.9) 05/23/17 07:00 RDW 14.1 % (11.9-15.9) 05/23/17 07:00 Plt Count 238 K/MM3 (134-434) 05/23/17 07:00 MPV 8.7 fl (7.5-11.1) 05/23/17 07:00 Sodium 142 mmol/L (136-145) 05/23/17 07:00 Potassium 4.0 mmol/L (3.5-5.1) 05/23/17 07:00 Chloride 109 mmol/L (98-107) H 05/23/17 07:00 Carbon Dioxide 28 mmol/L (21-32) 05/23/17 07:00 Anion Gap 5 (8-16) L 05/23/17 07:00 BUN 22 mg/dL (7-18) H 05/23/17 07:00 Creatinine 1.4 mg/dL (0.7-1.3) H 05/23/17 07:00 Creat Clearance w eGFR 53.86 (>60) 05/23/17 07:00 Random Glucose 86 mg/dL (74-106) 05/23/17 07:00 Calcium 8.7 mg/dL (8.5-10.1) 05/23/17 07:00 Total Bilirubin 0.8 mg/dL (0.2-1.0) D 05/23/17 07:00 AST 15 U/L (15-37) D 05/23/17 07:00 ALT 17 U/L (12-78) D 05/23/17 07:00 Alkaline Phosphatase 49 U/L (45-117) 05/23/17 07:00 Total Protein 6.1 g/dl (6.4-8.2) L 05/23/17 07:00 Albumin 3.0 g/dl (3.4-5.0) L 05/23/17 07:00 Urine Color Lt. yellow 05/22/17 00:00 Urine Appearance Clear 05/22/17 00:00 Urine pH 5.5 (5.0-8.0) 05/22/17 00:00 Ur Specific [place] 1.020 (1.001-1.035) 05/22/17 00:00 Urine Protein Negative (NEGATIVE) 05/22/17 00:00 Urine Glucose (UA) Trace (NEGATIVE) H 05/22/17 00:00 Urine Ketones Negative (NEGATIVE) 05/22/17 00:00 Urine Blood Negative (NEGATIVE) 05/22/17 00:00 Urine Nitrite Negative (NEGATIVE) 05/22/17 00:00 Urine Bilirubin Negative (NEGATIVE) 05/22/17 00:00 Urine Urobilinogen 0.2 mg/dL (0.2-1.0) 05/22/17 00:00 Ur Leukocyte Esterase Negative (NEGATIVE) 05/22/17 00:00 RPR Titer Nonreactive (NONREACTIVE) 05/23/17 07:00 Assessment: 05/24/17 10:55 WITHDRAWAL SX Plan: CONTINUE DETOX
[2017-05-24] MEDS: SENNOSIDES 8.6MG TABLET (FP) PO SCH (22:29)
[2017-05-24] MEDS: chlordiazePOXIDE 5 MG CAPSULE PO SCH (22:29)
[2017-05-24] MEDS: THIAMINE HCL 100 MG TABLET (FP) PO SCH (22:30)
[2017-05-25] MEDS: chlordiazePOXIDE 5 MG CAPSULE PO SCH ×3 (06:21→10:35)
[2017-05-25] MEDS: NIFEdipine E.R. 90 MG TABLET (FP) PO SCH (07:16)
[2017-05-25] MEDS: ISOSORBIDE MONONITRATE 60 MG TAB.SR.24H (FP) PO SCH (07:16)
[2017-05-25] MEDS: LISINOPRIL 20 MG TABLET (FP) PO SCH (10:34)
[2017-05-25] MEDS: PRENATAL VITAMINS W/ FOLIC ACID TABLET (FP) PO SCH (10:35)
[2017-05-25] MEDS: ASPIRIN 81 MG CHEWABLE TABLETS PO SCH (10:35)
--- NOTE | 2017-05-25 10:53 | PN ---
S Progress Note (SOAP) Subjective: ANXIETY,SWEATS,INTERMITTENT SLEEP. REQUESTING FOR SLEEPING AID. WILL F/U WITH PSYCH MD TODAY. Objective: 05/25/17 10:53 Vital Signs Temperature 96.8 F L 05/25/17 10:00 Pulse Rate 65 05/25/17 10:00 Respiratory Rate 18 05/25/17 10:00 Blood Pressure 148/88 05/25/17 10:00 O2 Sat by Pulse Oximetry (%) Laboratory Last Values WBC 12.7 K/mm3 (4.0-10.0) H D 05/23/17 07:00 RBC 3.74 M/mm3 (4.00-5.60) L 05/23/17 07:00 Hgb 11.1 GM/dL (11.7-16.9) L 05/23/17 07:00 Hct 34.1 % (35.4-49) L 05/23/17 07:00 MCV 91.1 fl (80-96) 05/23/17 07:00 MCH 29.7 pg (25.7-33.7) 05/23/17 07:00 MCHC 32.7 g/dl (32.0-35.9) 05/23/17 07:00 RDW 14.1 % (11.9-15.9) 05/23/17 07:00 Plt Count 238 K/MM3 (134-434) 05/23/17 07:00 MPV 8.7 fl (7.5-11.1) 05/23/17 07:00 Sodium 142 mmol/L (136-145) 05/23/17 07:00 Potassium 4.0 mmol/L (3.5-5.1) 05/23/17 07:00 Chloride 109 mmol/L (98-107) H 05/23/17 07:00 Carbon Dioxide 28 mmol/L (21-32) 05/23/17 07:00 Anion Gap 5 (8-16) L 05/23/17 07:00 BUN 22 mg/dL (7-18) H 05/23/17 07:00 Creatinine 1.4 mg/dL (0.7-1.3) H 05/23/17 07:00 Creat Clearance w eGFR 53.86 (>60) 05/23/17 07:00 Random Glucose 86 mg/dL (74-106) 05/23/17 07:00 Calcium 8.7 mg/dL (8.5-10.1) 05/23/17 07:00 Total Bilirubin 0.8 mg/dL (0.2-1.0) D 05/23/17 07:00 AST 15 U/L (15-37) D 05/23/17 07:00 ALT 17 U/L (12-78) D 05/23/17 07:00 Alkaline Phosphatase 49 U/L (45-117) 05/23/17 07:00 Total Protein 6.1 g/dl (6.4-8.2) L 05/23/17 07:00 Albumin 3.0 g/dl (3.4-5.0) L 05/23/17 07:00 Urine Color Lt. yellow 05/22/17 00:00 Urine Appearance Clear 05/22/17 00:00 Urine pH 5.5 (5.0-8.0) 05/22/17 00:00 Ur Specific [place] 1.020 (1.001-1.035) 05/22/17 00:00 Urine Protein Negative (NEGATIVE) 05/22/17 00:00 Urine Glucose (UA) Trace (NEGATIVE) H 05/22/17 00:00 Urine Ketones Negative (NEGATIVE) 05/22/17 00:00 Urine Blood Negative (NEGATIVE) 05/22/17 00:00 Urine Nitrite Negative (NEGATIVE) 05/22/17 00:00 Urine Bilirubin Negative (NEGATIVE) 05/22/17 00:00 Urine Urobilinogen 0.2 mg/dL (0.2-1.0) 05/22/17 00:00 Ur Leukocyte Esterase Negative (NEGATIVE) 05/22/17 00:00 RPR Titer Nonreactive (NONREACTIVE) 05/23/17 07:00 Assessment: 05/25/17 10:53 WITHDRAWAL SX Plan: CONTINUE DETOX
[2017-05-25] MEDS ORDERED: CYCLOBENZAPRINE HCL 10 MG TABLET (FP) PO PRN (11:33)
--- NOTE | 2017-05-25 12:22 | DS ---
[facility] Detox Discharge Summary Admission Date: 05/22/17 Discharge Date: 05/25/17 - History Present History: Alcohol Dependence, Cocaine Dependence Additional Comments: PT HAS A BED TO REHAB TODAY. ALERT O X 3. NAD. PT IS READY TO GO TO NEXT LEVEL OF CARE. Pertinent Past History: HTN VARICOSE VEINS BOTH LEGS ASTHMA PTSD INSOMNIA - Physical Exam Results Vital Signs: Vital Signs Temperature 96.8 F L 05/25/17 10:00 Pulse Rate 65 05/25/17 10:00 Respiratory Rate 18 05/25/17 10:00 Blood Pressure 148/88 05/25/17 10:00 O2 Sat by Pulse Oximetry (%) Pertinent Admission Physical Exam Findings: WITHDRAWAL SX Laboratory Last Values WBC 12.7 K/mm3 (4.0-10.0) H D 05/23/17 07:00 RBC 3.74 M/mm3 (4.00-5.60) L 05/23/17 07:00 Hgb 11.1 GM/dL (11.7-16.9) L 05/23/17 07:00 Hct 34.1 % (35.4-49) L 05/23/17 07:00 MCV 91.1 fl (80-96) 05/23/17 07:00 MCH 29.7 pg (25.7-33.7) 05/23/17 07:00 MCHC 32.7 g/dl (32.0-35.9) 05/23/17 07:00 RDW 14.1 % (11.9-15.9) 05/23/17 07:00 Plt Count 238 K/MM3 (134-434) 05/23/17 07:00 MPV 8.7 fl (7.5-11.1) 05/23/17 07:00 Sodium 142 mmol/L (136-145) 05/23/17 07:00 Potassium 4.0 mmol/L (3.5-5.1) 05/23/17 07:00 Chloride 109 mmol/L (98-107) H 05/23/17 07:00 Carbon Dioxide 28 mmol/L (21-32) 05/23/17 07:00 Anion Gap 5 (8-16) L 05/23/17 07:00 BUN 22 mg/dL (7-18) H 05/23/17 07:00 Creatinine 1.4 mg/dL (0.7-1.3) H 05/23/17 07:00 Creat Clearance w eGFR 53.86 (>60) 05/23/17 07:00 Random Glucose 86 mg/dL (74-106) 05/23/17 07:00 Calcium 8.7 mg/dL (8.5-10.1) 05/23/17 07:00 Total Bilirubin 0.8 mg/dL (0.2-1.0) D 05/23/17 07:00 AST 15 U/L (15-37) D 05/23/17 07:00 ALT 17 U/L (12-78) D 05/23/17 07:00 Alkaline Phosphatase 49 U/L (45-117) 05/23/17 07:00 Total Protein 6.1 g/dl (6.4-8.2) L 05/23/17 07:00 Albumin 3.0 g/dl (3.4-5.0) L 05/23/17 07:00 Urine Color Lt. yellow 05/22/17 00:00 Urine Appearance Clear 05/22/17 00:00 Urine pH 5.5 (5.0-8.0) 05/22/17 00:00 Ur Specific [place] 1.020 (1.001-1.035) 05/22/17 00:00 Urine Protein Negative (NEGATIVE) 05/22/17 00:00 Urine Glucose (UA) Trace (NEGATIVE) H 05/22/17 00:00 Urine Ketones Negative (NEGATIVE) 05/22/17 00:00 Urine Blood Negative (NEGATIVE) 05/22/17 00:00 Urine Nitrite Negative (NEGATIVE) 05/22/17 00:00 Urine Bilirubin Negative (NEGATIVE) 05/22/17 00:00 Urine Urobilinogen 0.2 mg/dL (0.2-1.0) 05/22/17 00:00 Ur Leukocyte Esterase Negative (NEGATIVE) 05/22/17 00:00 RPR Titer Nonreactive (NONREACTIVE) 05/23/17 07:00 - Treatment Hospital Course: Detox Protocol Followed, Detoxed Safely, Responded well, Discharged Condition Good, Rehab Referral Accepted Patient has Accepted a Rehab Referral to: [facility] - Medication Discharge Medications: Ambulatory Orders Nifedipine [Procardia Capsule -] 30 mg PO HS 01/22/17 Bupropion HCl [Wellbutrin Xl -] 150 mg PO DAILY #30 tab.sr.24h 01/24/17 Furosemide [Lasix -] 20 mg PO DAILY #30 mg 01/26/17 Lisinopril [Prinivil] 20 mg PO DAILY #30 mg 01/26/17 Isosorbide Mononitrate [Isosorbide Mononitrate ER] 60 mg PO DAILY@0800 05/22/17 Bupropion HCl [Bupropion Xl] 150 mg PO DAILY #30 tab.er.24h 05/23/17 - Diagnosis (1) Alcohol dependence with uncomplicated withdrawal Current Visit: Yes Status: Acute (2) Nicotine dependence Current Visit: Yes Status: Acute Qualifiers: Nicotine product type: cigarettes Substance use status: in withdrawal Qualified Code(s): F17.213 - Nicotine dependence, cigarettes, with withdrawal (3) Asthma Current Visit: Yes Status: Chronic Qualifiers: Asthma severity: moderate Asthma complication type: uncomplicated (4) Cocaine dependence, uncomplicated Current Visit: Yes Status: Acute (5) Hypertension Current Visit: Yes Status: Chronic Qualifiers: Hypertension type: essential hypertension Qualified Code(s): I10 - Essential (primary) hypertension (6) Depression (emotion) Current Visit: Yes Status: Suspected Qualifiers: Depression Type: dysthymia Qualified Code(s): F34.1 - Dysthymic disorder - AMA Did Patient Leave Against Medical Advice: No
[2017-05-25 13:41] VITALS: BP 148/95; PULSE 66; TEMP 97.1
[2017-05-25] MEDS ORDERED: CYCLOBENZAPRINE HCL 10 MG TABLET (FP) PO SCH (14:00)
[2017-05-25] MEDS ORDERED: chlordiazePOXIDE HCL 10 MG CAPSULE PO SCH (23:00)
== END 2017-05-25 15:25 | disposition other institution (70) | DRG 774 ==
LOC: YASAS 13:51 → Y3N 18:03
PROVIDERS: ADMIT Internal Medicine; ATTEND Internal Medicine
PROC: HZ2ZZZZ Detoxification Services for Substance Abuse Treatment (ICD-10-PCS; principal; 2017-05-22)
DX: F10.230 Alcohol dependence with withdrawal, uncomplicated (principal); F14.20 Cocaine dependence, uncomplicated; F12.20 Cannabis dependence, uncomplicated; F17.213 Nicotine dependence, cigarettes, with withdrawal; F19.24 Other psychoactive substance dependence with psychoactive substance-induced mood disorder; F34.1 Dysthymic disorder; I10 Essential (primary) hypertension; J45.20 Mild intermittent asthma, uncomplicated; Z63.4 Disappearance and death of family member; F32.9 Major depressive disorder, single episode, unspecified
CPT/HCPCS: 36415; 80053; 81003; 85027; 86593; 93005; 93010

== ENCOUNTER 2018-06-26 11:17 | Inpatient (IN) | payer OTHER ==
[2018-06-26 12:10] VITALS: BMI 27.2
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
[2018-06-26] MEDS ORDERED: guaiFENesin/D-METHORPHAN HB 10 ML UNIT-DOSE CUPS PO PRN (14:20)
[2018-06-26] MEDS ORDERED: ACETAMINOPHEN 325 MG TABLET (FP) PO PRN (14:20)
[2018-06-26] MEDS ORDERED: IBUPROFEN 400 MG TABLET (FP) PO PRN (14:20)
[2018-06-26] MEDS ORDERED: hydrOXYzine PAMOATE 25 MG CAPSULE (FP) PO PRN (14:20)
[2018-06-26] MEDS ORDERED: chlordiazePOXIDE HCL 25 MG CAPSULE PO PRN (14:20)
[2018-06-26] MEDS ORDERED: LOPERAMIDE HCL 2 MG CAPSULE PO PRN (14:20)
[2018-06-26] MEDS ORDERED: MAGNESIUM HYDROX 2400MG/30ML ORAL SUSPENSION 30 ML CUP PO PRN (14:20)
[2018-06-26] MEDS ORDERED: MENTHOL/PHENOL 1 EACH UD MM PRN (14:20)
[2018-06-26] MEDS ORDERED: MAGNESIUM CITRATE 300 ML BOTTLE PO PRN (14:20)
[2018-06-26] MEDS ORDERED: MAG HYDROX/AL HYDROX/SIMETH 30 ML UNIT-DOSE CUP PO PRN (14:20)
[2018-06-26] MEDS ORDERED: P-EPHED 60MG/TRIPROLIDI 2.5MG TABLET PO PRN (14:20)
[2018-06-26] MEDS: chlordiazePOXIDE HCL 25 MG CAPSULE PO SCH ×2 (16:50→22:07)
[2018-06-26] MEDS ORDERED: MELATONIN 5 MG TABLETS PO PRN (22:00)
[2018-06-26] MEDS: THIAMINE HCL 100 MG TABLET (FP) PO SCH (22:07)
[2018-06-27] MEDS: chlordiazePOXIDE HCL 25 MG CAPSULE PO SCH ×4 (05:53→22:26)
[2018-06-27 10:07] LABS: HEMOGLOBIN 12.2 GM/dL (11.7-16.9); MCH 29.3 pg (25.7-33.7); MCHC 32.1 g/dl (32.0-35.9); MEAN CELL VOLUME 91.4 fl (80-96); MEAN PLT VOLUME 9.4 fl (7.5-11.1); PLATELET COUNT 266 K/MM3 (134-434); RBC 4.16 M/mm3 (4.00-5.60); RDW 15.7 % (11.9-15.9); WHITE BLOOD COUNT 11.6 K/mm3 (4.0-10.0)
[2018-06-27] MEDS: PRENATAL VITAMINS W/ FOLIC ACID TABLET (FP) PO SCH (10:20)
[2018-06-27] MEDS: NIFEdipine E.R. 90 MG TABLET (FP) PO SCH (10:20)
[2018-06-27 10:37] LABS: ALBUMIN 3.6 g/dl (3.4-5.0); ALK PHOS 69 U/L (45-117); ANION GAP 8 MMOL/L (8-16); BILIRUBIN,TOTAL 0.5 mg/dL (0.2-1); BLOOD UREA NITROGEN 20 mg/dL (7-18); CALCIUM 9.1 mg/dL (8.5-10.1); CHLORIDE 105 mmol/L (98-107); CO2 28 mmol/L (21-32); CREATININE 1.4 mg/dL (0.55-1.3); GLUCOSE,RANDOM 117 mg/dL (74-106); POTASSIUM 4.1 mmol/L (3.5-5.1); SGOT/AST 33 U/L (15-37); SGPT/ALT 30 U/L (13-61); SODIUM 141 mmol/L (136-145); TOT PROT 7.5 g/dl (6.4-8.2)
[2018-06-27] MEDS ORDERED: FLU VACCINE QUAD 60 MCG/0.5 ML (MDV 18-19) IM ONE (12:00)
[2018-06-27] MEDS ORDERED: ASPIRIN 81 MG CHEWABLE TABLETS PO ONE (12:12)
[2018-06-27] MEDS ORDERED: ISOSORBIDE MONONITRATE 30 MG TAB.SR.24H (FP) PO ONE (12:30)
--- NOTE | 2018-06-27 12:44 | PN ---
S CIWA - CIWA Score Nausea/Vomitin-No Nausea/No Vomiting Muscle Tremors: None Anxiety: 4-Mod. Anxious/Guarded Agitation: 2 Paroxysmal Sweats: 3 Orientation: 0-Oriented Tacttile Disturbances: 2-Mild Itch/Numbness/Burn Auditory Disturbances: 0-None Visual Disturbances: 2-Mild Sensitivity Headache: 3-Moderate CIWA-Ar Total Score: 16 [facility] Progress Note (SOAP) Subjective: Fatigue, Interrupted Sleep, H/A, Sweating, Body Aches. Objective: PATIENT A & O X 3, OBSERVED AMBULATING ON UNIT. 06/27/18 12:40 Vital Signs Temperature 97.7 F 06/27/18 09:02 Pulse Rate 77 06/27/18 09:02 Respiratory Rate 18 06/27/18 09:02 Blood Pressure 142/84 06/27/18 09:02 O2 Sat by Pulse Oximetry (%) Laboratory Tests 06/27/18 06/27/18 06/27/18 06:00 06:00 06:00 WBC 11.6 H RBC 4.16 Hgb 12.2 Hct 38.0 MCV 91.4 MCH 29.3 MCHC 32.1 RDW 15.7 D Plt Count 266 MPV 9.4 Sodium 141 Potassium 4.1 Chloride 105 Carbon Dioxide 28 Anion Gap 8 BUN 20 H Creatinine 1.4 H Creat Clearance w eGFR 53.64 Random Glucose 117 H Calcium 9.1 Total Bilirubin 0.5 AST 33 ALT 30 Alkaline Phosphatase 69 Total Protein 7.5 Albumin 3.6 RPR Titer Nonreactive LABS NOTED. Assessment: 06/27/18 12:44 WITHDRAWAL SYMPTOMS. LEUKOCYTOSIS. 06/27/18 12:47 Plan: CONTINUE DETOX. REPEAT CBC TOMORROW AM FOR ELEVATED ADMISSION WBC LEVEL. D/C IBUPROFEN AND MAGNESIUM-CONTAINING MEDS. FOR ABNORMAL ADMISSION RENAL LAB VALUES.
--- NOTE | 2018-06-27 13:56 | PN ---
[facility] Progress Note Note: PATIENT APPROACHED NURSES STATION REPORTING PAIN IN CHEST THAT STARTED SEVERAL MINUTES AGO. PAIN AFFECTS MID-STERNAL ASPECT OF CHEST, HAS "BURNING" QUALITY TO IT, 4/10 ON PAIN SCALE, AND DOES NOT RADIATE TO LATERAL ASPECTS OF CHEST, TO ARM , OR TO NECK OR HEAD. PATIENT REPORTS HISTORY OF ANGINA AND THAT PAIN THAT HE IS CURRENTLY EXPERIENCING FEELS VERY SIMILAR TO TYPE OF PAIN THAT HE HAS EXPERIENCED DUE TO ANGINA IN THE PAST. PATIENT REPROTS HISTORY OF BEING PRESCRIBED ISOSORBIDE MONONITRATE, 60 MG PO DAILY FOR ANGINA. S1, S2 PRESENT. NO ADVENTITIOUS HEART SOUNDS AUSCULTATED. ECG ORDERED STAT. RESULTS NOTED: 'POSSIBLE LEFT ATRIAL ENLARGEMENT; LEFT VENTRICULAR HYPERTROPHY WITH REPOLARIZATION ABNORMALITY.' ISOSORBIDE MONONITRATE, 60 MG PO X 1 DOSE ORDERED STAT. ASPIRIN, 81 MG PO DAILY (FIRST DOSE NOW) ALSO ORDERED. WILL CONTINUE TO MONITOR FOR EFFECT. Dawit BHAT NP
--- NOTE | 2018-06-27 15:48 | PN ---
[facility] Progress Note Note: APPROXIMATELY 1.5 HOURS AFTER ADMINISTRATION OF FIRST DOSE OF ISOSORBIDE MONONITRATE, PATIENT REPORTS THAT CHEST PAIN HAS RESOLVED. WILL CONTINUE ISOSORBIDE MONONITRATE DAILY FOR REMAINDER OF PATIENT'S ADMISSION ON DETOX UNIT. PATIENT ADVISED TO INFORM NURSING / MEDICAL STAFF IMMEDIATELY IF CHEST PAIN DEVELOPS AGAIN OR IF ANY UNUSUAL SYMPTOMS OF ANY KIND DEVELOP AT ANY TIME. PATIENT VERBALIZED UNDERSTANDING OF RECOMMENDATION. Dawit BHAT NP
--- NOTE | 2018-06-27 16:24 | EKG ---
Test Reason : Blood Pressure : / mmHG Vent. Rate : 068 BPM Atrial Rate : 068 BPM P-R Int : 136 ms QRS Dur : 092 ms QT Int : 436 ms P-R-T Axes : 058 036 239 degrees QTc Int : 463 ms NORMAL SINUS RHYTHM POSSIBLE LEFT ATRIAL ENLARGEMENT LEFT VENTRICULAR HYPERTROPHY WITH REPOLARIZATION ABNORMALITY ABNORMAL ECG WHEN COMPARED WITH ECG OF 22-MAY-2017 22:40, PREMATURE VENTRICULAR COMPLEXES ARE NO LONGER PRESENT T WAVE INVERSION LESS EVIDENT IN INFERIOR LEADS Confirmed by JOANNA GUIDRY MD ([id number]) on 06/27/2018 4:24:18 PM Referred By: Confirmed By:JOANNA GUIDRY MD
[2018-06-27] MEDS: THIAMINE HCL 100 MG TABLET (FP) PO SCH (22:26)
[2018-06-28] MEDS: chlordiazePOXIDE HCL 25 MG CAPSULE PO SCH ×2 (05:14→11:38)
[2018-06-28] MEDS: PRENATAL VITAMINS W/ FOLIC ACID TABLET (FP) PO SCH (11:37)
[2018-06-28] MEDS: ISOSORBIDE MONONITRATE 30 MG TAB.SR.24H (FP) PO SCH (11:37)
[2018-06-28] MEDS: ASPIRIN 81 MG CHEWABLE TABLETS PO SCH (11:37)
[2018-06-28] MEDS: NIFEdipine E.R. 90 MG TABLET (FP) PO SCH (11:37)
--- NOTE | 2018-06-28 15:51 | PN ---
S CIWA - CIWA Score Nausea/Vomitin-No Nausea/No Vomiting Muscle Tremors: None Anxiety: 3 Agitation: 1-Slight > Activity Paroxysmal Sweats: No Perspiration Orientation: 0-Oriented Tacttile Disturbances: 2-Mild Itch/Numbness/Burn Auditory Disturbances: 0-None Visual Disturbances: 2-Mild Sensitivity Headache: 0-None Present CIWA-Ar Total Score: 8 [facility] Progress Note (SOAP) Subjective: Fatigue, Interrupted Sleep. Objective: PATIENT A & O X 3, OBSERVED AMBULATING ON UNIT. IN NO ACUTE DISTRESS PATIENT DENIES CHEST PAIN. 06/28/18 15:47 Vital Signs Temperature 97.7 F 06/28/18 09:49 Pulse Rate 75 06/28/18 09:49 Respiratory Rate 20 06/28/18 09:49 Blood Pressure 147/94 06/28/18 09:49 O2 Sat by Pulse Oximetry (%) Laboratory Tests 06/27/18 06/27/18 06/27/18 06:00 06:00 06:00 WBC 11.6 H RBC 4.16 Hgb 12.2 Hct 38.0 MCV 91.4 MCH 29.3 MCHC 32.1 RDW 15.7 D Plt Count 266 MPV 9.4 Sodium 141 Potassium 4.1 Chloride 105 Carbon Dioxide 28 Anion Gap 8 BUN 20 H Creatinine 1.4 H Creat Clearance w eGFR 53.64 Random Glucose 117 H Calcium 9.1 Total Bilirubin 0.5 AST 33 ALT 30 Alkaline Phosphatase 69 Total Protein 7.5 Albumin 3.6 RPR Titer Nonreactive LABS NOTED. RESULTS OF REPEAT CBC PENDING. 06/28/18 15:50 Assessment: 06/28/18 15:47 WITHDRAWAL SYMPTOMS. HYPERTENSION. Plan: CONTINUE DETOX. CLONIDINE, 0.1 MG PO X 1 FOR ELEVATED BP. PATIENT REPORTS THAT HE IS TOLERATING CURRENT DETOX SYMPTOMS WELL AND THAT HE IS FEELING WELL OVERALL. AT PATIENT'S REQUEST, CURRENT DETOX MEDICATION REGIMEN (LIBRIUM) MODIFIED SO THAT PATIENT MAY BE DISCHARGED TOMORROW, 06/28/2018, AT WHICH TIME BED BE AVAILABLE AT [facility] FOR PATIENT TO GO ON TO FOR AFTERCARE.
[2018-06-28 16:20] LABS: EOS % 2.9 % (0-4.5); HEMOGLOBIN 12.4 GM/dL (11.7-16.9); LYMPH % 27.1 % (8-40); MCH 31.3 pg (25.7-33.7); MCHC 34.5 g/dl (32.0-35.9); MEAN CELL VOLUME 90.8 fl (80-96); MEAN PLT VOLUME 8.9 fl (7.5-11.1); MONO % 9.3 % (3.8-10.2); NEUT % 59.7 % (42.8-82.8); PLATELET COUNT 284 K/MM3 (134-434); RBC 3.97 M/mm3 (4.00-5.60); RDW 15.8 % (11.9-15.9); WHITE BLOOD COUNT 9.1 K/mm3 (4.0-10.0)
[2018-06-28] MEDS ORDERED: cloNIDine HCL 0.1 MG TABLET PO ONE (16:30)
[2018-06-28] MEDS ORDERED: chlordiazePOXIDE 5 MG CAPSULE PO SCH (17:00)
[2018-06-28] MEDS: THIAMINE HCL 100 MG TABLET (FP) PO SCH (22:22)
[2018-06-28] MEDS: chlordiazePOXIDE HCL 10 MG CAPSULE PO SCH (22:22)
[2018-06-29] MEDS: chlordiazePOXIDE HCL 10 MG CAPSULE PO SCH (06:08)
[2018-06-29] MEDS: ASPIRIN 81 MG CHEWABLE TABLETS PO SCH (09:57)
[2018-06-29] MEDS: PRENATAL VITAMINS W/ FOLIC ACID TABLET (FP) PO SCH (09:57)
[2018-06-29] MEDS: ISOSORBIDE MONONITRATE 30 MG TAB.SR.24H (FP) PO SCH (09:58)
[2018-06-29] MEDS: NIFEdipine E.R. 90 MG TABLET (FP) PO SCH (09:58)
--- NOTE | 2018-06-29 10:27 | DS ---
[facility] Detox Discharge Summary Admission Date: 06/26/18 Discharge Date: 06/29/18 - History Present History: Alcohol Dependence, Cocaine Dependence, Sedative Dependence Pertinent Past History: pt admitted for alcohol,cocaine and xanax withdrawal treatment- did well. Wants to go for rehab services today at [facility] - Physical Exam Results Vital Signs: Vital Signs Temperature 97.6 F 06/29/18 06:59 Pulse Rate 62 06/29/18 06:59 Respiratory Rate 18 06/29/18 06:59 Blood Pressure 145/89 06/29/18 06:59 O2 Sat by Pulse Oximetry (%) - Treatment Hospital Course: Detox Protocol Followed, Detoxed Safely, Responded well, Discharged Condition Good, Rehab Referral Accepted - Medication Discharge Medications: Ambulatory Orders Nifedipine [Procardia Capsule -] 30 mg PO DAILY 01/22/17 Bupropion HCl [Bupropion Xl] 150 mg PO DAILY #30 tab.er.24h 05/23/17 - AMA Did Patient Leave Against Medical Advice: No
[2018-06-29 11:13] VITALS: BP 142/93; PULSE 73; TEMP 97.7
[2018-06-29] MEDS ORDERED: cloNIDine HCL 0.1 MG TABLET PO ONE (13:02)
[2018-06-29] MEDS ORDERED: chlordiazePOXIDE HCL 10 MG CAPSULE PO SCH (17:00)
== END 2018-06-29 13:58 | disposition other institution (70) | DRG 774 ==
LOC: YASAS 11:17 → Y6N 15:20
PROC: HZ2ZZZZ Detoxification Services for Substance Abuse Treatment (ICD-10-PCS; principal; 2018-06-26)
DX: F10.230 Alcohol dependence with withdrawal, uncomplicated (principal); F13.230 Sedative, hypnotic or anxiolytic dependence with withdrawal, uncomplicated; F14.20 Cocaine dependence, uncomplicated; F17.213 Nicotine dependence, cigarettes, with withdrawal; F43.10 Post-traumatic stress disorder, unspecified; I10 Essential (primary) hypertension; J45.20 Mild intermittent asthma, uncomplicated; I83.93 Asymptomatic varicose veins of bilateral lower extremities; Z87.438 Personal history of other diseases of male genital organs; Z90.79 Acquired absence of other genital organ(s); Z86.19 Personal history of other infectious and parasitic diseases; Z88.8 Allergy status to other drugs, medicaments and biological substances
CPT/HCPCS: 36415; 80053; 85025; 85027; 86593; 90688; 93005; 93010; G0008; J0735

== ENCOUNTER 2018-06-29 14:05 | Inpatient (IN) | payer OTHER ==
--- NOTE | 2018-06-29 14:45 | HP ---
[facility] Assess/Revision - Admission History Admitted to Rehab from: [facility] Date of Admission to Rehab: 06/29/18 - Findings Detox History & Physical reviewed: Yes Concur with findings: Yes Comments/Additional Findings: for rehab as protocol Inpatient Rehab Admission - Initial Determination Are CD services needed?: Yes Free of communicable disease: Yes Not in need of hospitalization: Yes - Rehab Admission Criteria Previous failed treatment: Yes Poor recovery environment: Yes Comorbidities: Yes Lacks judgement: No Patient is meeting Inpatient Rehab admission criteria:: Yes
[2018-06-29] MEDS ORDERED: MAG HYDROX/AL HYDROX/SIMETH 30 ML UNIT-DOSE CUP PO PRN (14:47)
[2018-06-29] MEDS ORDERED: MAGNESIUM HYDROX 2400MG/30ML ORAL SUSPENSION 30 ML CUP PO PRN (14:47)
[2018-06-29] MEDS ORDERED: LOPERAMIDE HCL 2 MG CAPSULE PO PRN (14:47)
[2018-06-29] MEDS ORDERED: MAGNESIUM CITRATE 300 ML BOTTLE PO PRN (14:47)
[2018-06-29] MEDS ORDERED: P-EPHED 60MG/TRIPROLIDI 2.5MG TABLET PO PRN (14:47)
[2018-06-29] MEDS ORDERED: MENTHOL/PHENOL 1 EACH UD MM PRN (14:47)
[2018-06-29] MEDS ORDERED: guaiFENesin/D-METHORPHAN HB 10 ML UNIT-DOSE CUPS PO PRN (14:47)
[2018-06-29] MEDS ORDERED: IBUPROFEN 400 MG TABLET (FP) PO PRN (14:47)
[2018-06-29] MEDS: THIAMINE HCL 100 MG TABLET (FP) PO SCH (21:02)
[2018-06-29] MEDS: MELATONIN 5 MG TABLETS PO PRN (21:02)
[2018-06-29] MEDS: hydrOXYzine PAMOATE 50 MG CAPSULE (FP) PO PRN (21:03)
[2018-06-30] MEDS ORDERED: cloNIDine HCL 0.1 MG TABLET PO ONE ×2 (07:00→23:47)
--- NOTE | 2018-06-30 07:02 | PN ---
[facility] Progress Note Note: Patient's blood pressure this morning is B/P 162/108. Patient is asymptomatic Vital Signs Temperature 98.4 F 06/30/18 06:52 Pulse Rate 59 L 06/30/18 06:52 Respiratory Rate 18 06/30/18 06:52 Blood Pressure 162/108 H 06/30/18 06:52 O2 Sat by Pulse Oximetry (%) Action: Clonidine 0.1mg 1 tablet oral ordered
[2018-06-30] MEDS: hydrOXYzine PAMOATE 50 MG CAPSULE (FP) PO PRN (07:12)
[2018-06-30] MEDS: PRENATAL VITAMINS W/ FOLIC ACID TABLET (FP) PO SCH (09:40)
[2018-06-30] MEDS: NIFEdipine E.R. 30 MG TABLET (FP) PO SCH (09:40)
[2018-06-30] MEDS: THIAMINE HCL 100 MG TABLET (FP) PO SCH (21:17)
[2018-06-30] MEDS: MELATONIN 5 MG TABLETS PO PRN (21:18)
--- NOTE | 2018-06-30 23:49 | PN ---
S Progress Note Note: Patient's blood pressure is B/P 175/103. Patient is asymptomatic Vital Signs Temperature 98.4 F 06/30/18 06:52 Pulse Rate 67 06/30/18 21:00 Respiratory Rate 18 06/30/18 10:00 Blood Pressure 175/103 H 06/30/18 21:00 O2 Sat by Pulse Oximetry (%) Action: Clonidine 0.1mg 1 tablet oral ordered
[2018-07-01] MEDS: NIFEdipine E.R. 30 MG TABLET (FP) PO SCH (10:01)
[2018-07-01] MEDS: PRENATAL VITAMINS W/ FOLIC ACID TABLET (FP) PO SCH (10:01)
--- NOTE | 2018-07-01 13:13 | PN ---
[facility] Progress Note Note: RECEIVED A CALL FROM RON PHARMACIST AT [facility] ON [address] [place] [address] RE:PT'S CURRENT HOME MED LIST. PT ON: NIFEDIPINE ER 90 MG 1 TAB PO DAILY ISOSORBIDE MONONITRATE ER 60 MG 1 TAB PO DAILY ASPIRIN 81 MG PO DAILY LIPITOR 40 MG PO DAILY ENALAPRIL 5 MG PO DAILY(WAS ON LISINOPRIL 40 MG PO DAILY WHICH WAS CHANGED TO ENALAPRIL). MED LIST ABOVE TO BE UPDATED BY NURSE SMITH.
[2018-07-01] MEDS: ISOSORBIDE MONONITRATE 30 MG TAB.SR.24H (FP) PO SCH (15:54)
[2018-07-01] MEDS: ASPIRIN 81 MG CHEWABLE TABLETS PO SCH (15:54)
[2018-07-01] MEDS: ENALAPRIL MALEATE 5 MG TABLET (FP) PO SCH (15:54)
[2018-07-01] MEDS: THIAMINE HCL 100 MG TABLET (FP) PO SCH (21:53)
[2018-07-01] MEDS: MELATONIN 5 MG TABLETS PO PRN (21:53)
[2018-07-01] MEDS: ATORVASTATIN CA 40 MG TABLET (FP) PO SCH (21:53)
[2018-07-01] MEDS: hydrOXYzine PAMOATE 50 MG CAPSULE (FP) PO PRN (21:54)
[2018-07-02] MEDS: hydrOXYzine PAMOATE 50 MG CAPSULE (FP) PO PRN (07:30)
[2018-07-02] MEDS: NIFEdipine E.R. 90 MG TABLET (FP) PO SCH (11:04)
[2018-07-02] MEDS: PRENATAL VITAMINS W/ FOLIC ACID TABLET (FP) PO SCH (11:04)
[2018-07-02] MEDS: ASPIRIN 81 MG CHEWABLE TABLETS PO SCH (11:04)
[2018-07-02] MEDS: ENALAPRIL MALEATE 5 MG TABLET (FP) PO SCH (11:05)
[2018-07-02] MEDS: ISOSORBIDE MONONITRATE 30 MG TAB.SR.24H (FP) PO SCH (11:05)
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
[2018-07-02] MEDS: THIAMINE HCL 100 MG TABLET (FP) PO SCH (21:48)
[2018-07-02] MEDS: ATORVASTATIN CA 40 MG TABLET (FP) PO SCH (21:48)
[2018-07-02] MEDS: MELATONIN 5 MG TABLETS PO PRN (21:49)
[2018-07-02] MEDS ORDERED: SUVOREXANT 10 MG TABLET PO PRN (22:00)
[2018-07-02] MEDS ORDERED: cloNIDine HCL 0.1 MG TABLET PO ONE (22:13)
[2018-07-03] MEDS: ASPIRIN 81 MG CHEWABLE TABLETS PO SCH (10:29)
[2018-07-03] MEDS: NIFEdipine E.R. 90 MG TABLET (FP) PO SCH (10:30)
[2018-07-03] MEDS: ISOSORBIDE MONONITRATE 30 MG TAB.SR.24H (FP) PO SCH (10:30)
[2018-07-03] MEDS: PRENATAL VITAMINS W/ FOLIC ACID TABLET (FP) PO SCH (10:30)
[2018-07-03] MEDS: ENALAPRIL MALEATE 5 MG TABLET (FP) PO SCH (10:30)
[2018-07-03] MEDS: ATORVASTATIN CA 40 MG TABLET (FP) PO SCH (21:45)
[2018-07-03] MEDS: ACETAMINOPHEN 325 MG TABLET (FP) PO PRN (21:45)
[2018-07-03] MEDS: THIAMINE HCL 100 MG TABLET (FP) PO SCH (21:45)
[2018-07-04] MEDS: ENALAPRIL MALEATE 5 MG TABLET (FP) PO SCH (08:30)
[2018-07-04] MEDS: NIFEdipine E.R. 90 MG TABLET (FP) PO SCH (08:30)
[2018-07-04] MEDS: ISOSORBIDE MONONITRATE 30 MG TAB.SR.24H (FP) PO SCH (08:30)
[2018-07-04] MEDS ORDERED: NITROGLYCERIN SUBLINGUAL 1/150 0.4 MG TAB SL ONE (08:42)
--- NOTE | 2018-07-04 08:59 | PN ---
[facility] Progress Note Note: NURSE CALLED FOR A PT C/O ANXIETY AND "ANGINA" PAIN. PT WAS SEEN ALERT AND HAVING CONVERSATION WITH PEER. REPORTS HE WAS ANXIOUS EARLIER THIS MORNING BECAUSE NEED HIS MEDICATIONS AT 6 A.M WHEN HE NORMALLY TAKES THEM AT HOME. REPORTS HE HAD NO MORE CHEST DISCOMFORT AT TIME OF EXAMINATION BECAUSE NURSE GAVE HIM HIS HEART MEDICATIONS. Vital Signs - 24 hr 07/03/18 07/04/18 07/04/18 19:00 00:30 07:18 Temperature 98.5 F Pulse Rate 73 81 Respiratory 18 18 Rate Blood Pressure 157/89 156/94 Laboratory Tests 06/30/18 06:00 HIV 1&2 Antibody Screen Negative HIV P24 Antigen Negative CARDIAC:S1 S2, NO MURMUR LUNGS:CTA EXTREMITIES:NO EDEMA NAD PLAN:RESCHEDULE ALL CARDIAC MEDS AT 6 A.M MONITOR PT STATUS
[2018-07-04] MEDS: ASPIRIN 81 MG CHEWABLE TABLETS PO SCH (09:20)
[2018-07-04] MEDS: PRENATAL VITAMINS W/ FOLIC ACID TABLET (FP) PO SCH (09:20)
[2018-07-04] MEDS: THIAMINE HCL 100 MG TABLET (FP) PO SCH (22:10)
[2018-07-04] MEDS: MELATONIN 5 MG TABLETS PO PRN (22:10)
[2018-07-04] MEDS: ATORVASTATIN CA 40 MG TABLET (FP) PO SCH (22:10)
[2018-07-05] MEDS: ENALAPRIL MALEATE 5 MG TABLET (FP) PO SCH (06:21)
[2018-07-05] MEDS: ISOSORBIDE MONONITRATE 30 MG TAB.SR.24H (FP) PO SCH (06:21)
[2018-07-05] MEDS: NIFEdipine E.R. 90 MG TABLET (FP) PO SCH (06:21)
[2018-07-05] MEDS: PRENATAL VITAMINS W/ FOLIC ACID TABLET (FP) PO SCH (11:09)
[2018-07-05] MEDS: ASPIRIN 81 MG CHEWABLE TABLETS PO SCH (11:09)
[2018-07-05] MEDS: MELATONIN 5 MG TABLETS PO PRN (21:57)
[2018-07-05] MEDS: ATORVASTATIN CA 40 MG TABLET (FP) PO SCH (21:57)
[2018-07-05] MEDS: THIAMINE HCL 100 MG TABLET (FP) PO SCH (21:57)
[2018-07-05] MEDS: ACETAMINOPHEN 325 MG TABLET (FP) PO PRN (21:58)
[2018-07-05] MEDS ORDERED: SUVOREXANT 10 MG TABLET PO PRN (22:00)
[2018-07-06] MEDS: ENALAPRIL MALEATE 5 MG TABLET (FP) PO SCH (06:40)
[2018-07-06] MEDS: ISOSORBIDE MONONITRATE 30 MG TAB.SR.24H (FP) PO SCH (06:40)
[2018-07-06] MEDS: NIFEdipine E.R. 90 MG TABLET (FP) PO SCH (06:40)
[2018-07-06] MEDS: ASPIRIN 81 MG CHEWABLE TABLETS PO SCH (11:13)
[2018-07-06] MEDS: PRENATAL VITAMINS W/ FOLIC ACID TABLET (FP) PO SCH (11:13)
[2018-07-06] MEDS: THIAMINE HCL 100 MG TABLET (FP) PO SCH (22:04)
[2018-07-06] MEDS: ATORVASTATIN CA 40 MG TABLET (FP) PO SCH (22:04)
[2018-07-06] MEDS: hydrOXYzine PAMOATE 50 MG CAPSULE (FP) PO PRN (22:06)
[2018-07-06] MEDS: ACETAMINOPHEN 325 MG TABLET (FP) PO PRN (22:06)
[2018-07-06] MEDS: MELATONIN 5 MG TABLETS PO PRN (22:06)
[2018-07-06] MEDS ORDERED: cloNIDine HCL 0.1 MG TABLET PO ONE (23:28)
--- NOTE | 2018-07-06 23:29 | PN ---
[facility] Progress Note Note: clonidine 0.1mg for asymptomatic elevated b/p, recently restarted on home meds. cont to monitor closely Vital Signs - 8 hr 07/06/18 07/06/18 07/06/18 22:05 23:23 23:24 Pulse Rate 68 64 62 Blood Pressure 166/104 H 153/98 154/99 Vital Signs - 24 hr 07/06/18 07/06/18 07/06/18 03:30 07:28 22:05 Temperature 98.7 F Pulse Rate 60 68 Respiratory 18 18 Rate Blood Pressure 168/102 H 166/104 H 07/06/18 07/06/18 23:23 23:24 Temperature Pulse Rate 64 62 Respiratory Rate Blood Pressure 153/98 154/99
[2018-07-07] MEDS: NIFEdipine E.R. 90 MG TABLET (FP) PO SCH (06:24)
[2018-07-07] MEDS: ENALAPRIL MALEATE 5 MG TABLET (FP) PO SCH (06:24)
[2018-07-07] MEDS: ISOSORBIDE MONONITRATE 30 MG TAB.SR.24H (FP) PO SCH (06:26)
[2018-07-07 07:21] VITALS: TEMP 97.4
[2018-07-07] MEDS: PRENATAL VITAMINS W/ FOLIC ACID TABLET (FP) PO SCH (10:24)
[2018-07-07] MEDS: ASPIRIN 81 MG CHEWABLE TABLETS PO SCH (10:24)
[2018-07-07] MEDS ORDERED: ENALAPRIL MALEATE 5 MG TABLET (FP) PO ONE (21:13)
--- NOTE | 2018-07-07 22:04 | PN ---
[facility] Progress Note Note: asked to see pt by rn for c/o c.p. client denies active chest pain. stated he had some burning in the middle of his chest (point to epigastric area.). states he has been gaseous all day and prior to event he felt like he had alot of acid in his stomach after drinking some orange juice and milk. states he also has hx/o angina and a past hx of mi due to his cociane use. requesting clonidine as it helped with his pressure and sleep night before. he presently denies sob, fever, chills, n/v/dizziness. upon arrival client was in bathroom seen at bedside a/o x3 nad cv- rrr lungs- ctab o2 sat 94% ra Vital Signs Temperature 97.4 F L 07/07/18 07:20 Pulse Rate 61 07/07/18 20:35 Respiratory Rate 18 07/07/18 20:35 Blood Pressure 149/108 H 07/07/18 20:35 O2 Sat by Pulse Oximetry (%) htn, gerd vs angina vs c.p. ekg sinus adrianna vr 57 lvh w/ repolarization abnormality p- enalapril 5 mg now increase daily dose of enalipril to 10 mg daily [place] now cont to monitor closely
[2018-07-07] MEDS: THIAMINE HCL 100 MG TABLET (FP) PO SCH (22:05)
[2018-07-07] MEDS: ATORVASTATIN CA 40 MG TABLET (FP) PO SCH (22:05)
[2018-07-07 22:07] VITALS: PULSE 61
[2018-07-07] MEDS: hydrOXYzine PAMOATE 50 MG CAPSULE (FP) PO PRN (22:07)
[2018-07-07] MEDS: MELATONIN 5 MG TABLETS PO PRN (22:07)
[2018-07-07 23:36] VITALS: BP 152/99
[2018-07-08] MEDS ORDERED: NITROGLYCERIN SUBLINGUAL 1/150 0.4 MG TAB SL ONE (03:48)
[2018-07-08] MEDS ORDERED: ASPIRIN 325 MG TABLET PO ONE (03:49)
[2018-07-08] MEDS ORDERED: ASPIRIN 81 MG CHEWABLE TABLETS PO ONE (03:57)
--- NOTE | 2018-07-08 03:59 | PN ---
[facility] Progress Note Note: asked to see client for c/o c.p upon arrival client seen seated in chair grabbing mid chest c/o c.p 12/02 states he was lying down when the pain woke him up. denies sob, radiation, diaphoresis. client is reluctant to speak/irritable seated in chair appears to be in moderate distress a/o x3 cv rrr 54 lungs - ctab neg w/r/r- 02 sat 99% client now reports pain has subsided now 08/04 b/p/ t. 97.7 (oral), 152/100 p-53 r- 16 p- given client reported hx/o recent mi, angina, c.p. x2 in less than 8 hours and hx/o cocaine use will transfer client out to [facility] for further evaluation he was offered asa 324 mg which he refused. nitro 0.4 mg held for resolved c.p 911 was initiated ekg done by 911 service not indicative of mi or anything acute. pt was endorsed to Dr. Donaldson/lilly er
[2018-07-08] MEDS ORDERED: ENALAPRIL MALEATE 5 MG TABLET (FP) PO SCH (06:00)
[2018-07-08] MEDS: NIFEdipine E.R. 90 MG TABLET (FP) PO SCH (11:33)
[2018-07-08] MEDS: ISOSORBIDE MONONITRATE 30 MG TAB.SR.24H (FP) PO SCH (11:33)
[2018-07-08] MEDS: ASPIRIN 81 MG CHEWABLE TABLETS PO SCH (11:33)
[2018-07-08] MEDS: PRENATAL VITAMINS W/ FOLIC ACID TABLET (FP) PO SCH (11:35)
[2018-07-08] MEDS ORDERED: SUVOREXANT 10 MG TABLET PO PRN (22:00)
[2018-07-08] MEDS: ATORVASTATIN CA 40 MG TABLET (FP) PO SCH (22:01)
[2018-07-08] MEDS: THIAMINE HCL 100 MG TABLET (FP) PO SCH (22:01)
--- NOTE | 2018-07-09 18:19 | EKG ---
Test Reason : Blood Pressure : / mmHG Vent. Rate : 051 BPM Atrial Rate : 051 BPM P-R Int : 162 ms QRS Dur : 108 ms QT Int : 470 ms P-R-T Axes : 055 022 144 degrees QTc Int : 433 ms SINUS BRADYCARDIA LEFT VENTRICULAR HYPERTROPHY WITH REPOLARIZATION ABNORMALITY ABNORMAL ECG WHEN COMPARED WITH ECG OF 27-JUN-2018 11:59, NO SIGNIFICANT CHANGE WAS FOUND Confirmed by MD GRAY, ALEJANDRO ([id number]) on 07/09/2018 6:19:46 PM Referred By: Confirmed By:ALEJANDRO CASTELLANO MD
== END 2018-07-08 23:49 | disposition short-term general hospital (02) | DRG 772 ==
LOC: YASAS 14:05 → Y5N 14:06
PROVIDERS: ADMIT Psychiatry & Neurology Psychiatry; ATTEND Psychiatry & Neurology Psychiatry
PROC: HZ42ZZZ Group Counseling for Substance Abuse Treatment, Cognitive-Behavioral (ICD-10-PCS; principal; 2018-07-02)
DX: F10.20 Alcohol dependence, uncomplicated (principal); F14.20 Cocaine dependence, uncomplicated; F43.10 Post-traumatic stress disorder, unspecified; F19.24 Other psychoactive substance dependence with psychoactive substance-induced mood disorder; I10 Essential (primary) hypertension; R07.9 Chest pain, unspecified; R00.1 Bradycardia, unspecified; G47.00 Insomnia, unspecified; J45.909 Unspecified asthma, uncomplicated; K76.0 Fatty (change of) liver, not elsewhere classified; Z87.820 Personal history of traumatic brain injury; Z86.69 Personal history of other diseases of the nervous system and sense organs; Z76.89 Persons encountering health services in other specified circumstances; Z87.438 Personal history of other diseases of male genital organs; Z59.0 Homelessness
CPT/HCPCS: 36415; 87389; 93005; 93010; J0735

== ENCOUNTER 2018-07-08 04:28 | Observation (INO) | payer OTHER ==
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
--- NOTE | 2018-07-08 04:41 | PDOC ---
Attending Attestation - Resident Resident Name: Karl Donladson - ED Attending Attestation I have performed the following: I have examined & evaluated the patient, The case was reviewed & discussed with the resident, I agree w/resident's findings & plan - HPI HPI: 07/08/18 05:06 Pt came with CP that lasted x 10 min and woke him from sleep. He has no SOB, no fever, no movement of the pain. Pt has no abd or flank pain - Physicial Exam PE: 07/08/18 05:07 Agree with resident exam - Medical Decision Making 07/08/18 06:35 Pt's BP came down in the ER. He has normal exam and normal labs and he is stable or discharge back to [facility]; he knows that he should return for worsening CP. Heart Score/ECG Review - ECG Intrepretation Rhythm: Regular Rhythm - Napier Napier: Normal - P and DE Prominent R with upright T in V1 (true posterior NE): No Delta Wave(s) Present: No WPW: No - ST and T Early Repolarization: No Non Specific ST-T Wave changes: No Flattened T Waves: No Prolonged Q-T Interval: No - ECG Impressions Normal ECG: No Non-specific ST Elevation: No Ischemic Changes: No (LVH with strain - old pattern) Bradycardia: Yes Torsades mildred Pointes: No WPW: No
[2018-07-08] MEDS ORDERED: ENALAPRIL MALEATE 10 MG TABLET (FP) PO ONE (05:05)
[2018-07-08] MEDS ORDERED: ENALAPRIL MALEATE 5 MG TABLET (FP) ONE (05:11)
[2018-07-08 05:25] LABS: ALBUMIN 3.1 g/dl (3.4-5.0); ALK PHOS 59 U/L (45-117); ANION GAP 5 MMOL/L (8-16); BILIRUBIN,TOTAL 0.4 mg/dL (0.2-1); BLOOD UREA NITROGEN 28 mg/dL (7-18); CALCIUM 8.8 mg/dL (8.5-10.1); CHLORIDE 108 mmol/L (98-107); CO2 28 mmol/L (21-32); CREATININE 1.2 mg/dL (0.55-1.3); GLUCOSE,RANDOM 93 mg/dL (74-106); POTASSIUM 3.9 mmol/L (3.5-5.1); SGOT/AST 18 U/L (15-37); SGPT/ALT 34 U/L (13-61); SODIUM 142 mmol/L (136-145); TOT PROT 6.7 g/dl (6.4-8.2)
[2018-07-08] MEDS ORDERED: NITROGLYCERIN SUBLINGUAL 1/150 0.4 MG TAB SL ONE ×3 (09:52→13:23)
--- NOTE | 2018-07-08 09:55 | PDOC ---
*Physical Exam - Vital Signs Last Vital Signs Temp Pulse Resp BP Pulse Ox 98.4 F 51 L 16 165/78 99 07/08/18 06:43 07/08/18 06:43 07/08/18 06:43 07/08/18 06:43 07/08/18 06:43 Heart Score/ECG Review - ECG Impressions Comment:: 07/08/18 10:04 Twelve-lead EKG was performed and reviewed by me. There is normal sinus rhythm with a rate of 59 The axis is normal. LVH with repolarizaiton ED Treatment Course - LABORATORY CBC & Chemistry Diagram: 07/08/18 04:50 - ADDITIONAL ORDERS Additional order review: Laboratory Results 07/08/18 04:50 Sodium 142 Potassium 3.9 Chloride 108 H Carbon Dioxide 28 Anion Gap 5 L BUN 28 H Creatinine 1.2 Creat Clearance w eGFR > 60 Random Glucose 93 Calcium 8.8 Total Bilirubin 0.4 AST 18 ALT 34 Alkaline Phosphatase 59 Creatine Kinase 99 Troponin I 0.04 Total Protein 6.7 Albumin 3.1 L - Medications Given in the ED: ED Medications Discontinued Medications Generic Name Dose Route Start Last Admin Trade Name Freq PRN Reason Stop Dose Admin Enalapril Maleate 20 mg 07/08/18 05:05 07/08/18 05:24 Vasotec - PO 07/08/18 05:06 20 mg ONCE ONE Administration Medical Decision Making - Medical Decision Making 07/08/18 09:54 pt awaiting transfer back to [facility], now complaining of chest pain that is pressure like substernally - typical of his angina. pt has a history of cocaine use, but last use was in late may. and he has been in rehab at [facility]. states he was fine this evening until about 10 minutes ago when he started having his chest pain will give a dose of ntg as pt states that helps him when he has his cp will obtain ekg as well 07/08/18 10:17 pts pain is resolved will obtain another trop will give pts bp nifidepine will reassess, consider dmission for cp r/o pt states he has had several caths in the past and was negative at [facility] 07/08/18 11:39 pt with cp again will adimt to obs for further workup 07/08/18 11:57 trop neg x 2 pain ersolved with another dose of ntg case dw dr. clark agree with observation tele request consult from dr. lester. will giv him a call and consult placed in computer Case discussed in detail with admitting physician including history, physical exam and ancillary studies. Admitting physician has assumed care for the patient, will follow all pending diagnostics and will complete the evaluation and treatment. 07/08/18 12:07 case lorenzo lester agere with mangement recommend calcium channel blockers for bp control *DC/Admit/Observation/Transfer Diagnosis at time of Disposition: Chest pain Qualifiers: Chest pain type: unspecified Qualified Code(s): R07.9 - Chest pain, unspecified - Discharge Dispostion Condition at time of disposition: Stable Decision to Admit order: Yes - Referrals - Patient Instructions Printed Discharge Instructions: DI for Chest Pain Additional Instructions: You were evaluated today in the ER for your chest pain. We evaluated you with cardiac labs as well as EKG. No concerning findings were found at this time. Please follow-up with primary care provider for further evaluation. Return to ER if any fever, chills, further pain, or other concerning findings. - Post Discharge Activity
[2018-07-08] MEDS ORDERED: NIFEdipine E.R. 90 MG TABLET (FP) PO ONE (10:16)
[2018-07-08] MEDS ORDERED: ASPIRIN 81 MG CHEWABLE TABLETS PO ONE (10:16)
[2018-07-08] MEDS ORDERED: NIFEdipine E.R. 30 MG TABLET (FP) ONE (10:25)
[2018-07-08] MEDS ORDERED: ASPIRIN 81 MG CHEWABLE TABLETS ONE (10:25)
--- NOTE | 2018-07-08 12:20 | CON.CARD ---
Consult Consult Specialty:: Cardiology Referred by:: ER Reason for Consultation:: Cocaine chest pain - History of Present Illness Chief Complaint: Chest pain History of Present Illness: Mr. Restrepo is a 52 yo male w/ pmh of HTN heart disease, nonobstructive CAD angina , Asthma, Alcohol and cocaine abuse who presents for evaluation of sternal chest pain he reports is typical of his normal angina. Patient reports he was awaken from sleep at approximately 3:30am this morning. Pain lasted for approximately 10 minutes before it improved. Mr. Restrepo presents from [facility] where he is in rehab following 2 days of cocaine use on the and 30st of May. He is currently asymptomatic and denies chest pain, dyspnea, near or true syncope, palpitations, orthopnea, PND or LE edema. - History Source History Provided By: Patient Limitations to Obtaining History: No Limitations - Past Medical History Cardio/Vascular: Yes: HTN - Alcohol/Substance Use Hx Alcohol Use: Yes (Alcohol- "couple of six packs") - Smoking History Smoking history: Current every day smoker Have you smoked in the past 12 months: Yes Aproximately how many cigarettes per day: 4 Home Medications - Allergies Allergies/Adverse Reactions: Allergies Allergy/AdvReac Type Severity Reaction Status Date / Time hydrochlorothiazide Allergy loss Verified 07/08/18 04:45 weight, seizure DIURETICS Allergy loss Uncoded 07/08/18 04:45 weight, seizure - Home Medications Home Medications: Ambulatory Orders Nifedipine [Procardia Capsule -] 30 mg PO DAILY 01/22/17 Bupropion HCl [Bupropion Xl] 150 mg PO DAILY #30 tab.er.24h 05/23/17 Aspirin 81 mg PO DAILY 07/01/18 Atorvastatin Ca [Lipitor] 40 mg PO DAILY 07/01/18 Enalapril Maleate 5 mg PO DAILY 07/01/18 Isosorbide Mononitrate [Isosorbide Mononitrate ER] 60 mg PO DAILY 07/01/18 Nifedipine ER [Procardia Xl -] 90 mg PO DAILY 07/01/18 Tamsulosin HCl [Flomax] 0.4 mg PO HS@2100 07/01/18 Nitroglycerin 0.4 mg SL PRN PRN 07/08/18 Family Disease History - Family Disease History Family Disease History: Heart Disease: Mother (AIDS; ), Other: Grandparent (ETOH DEPENDENT ), Father (ETOH DEPENDENT ), Mother, Brother ( /) Review of Systems - Review of Systems Cardiovascular: reports: Chest Pain Vital Signs: Vital Signs Temperature 98.4 F 07/08/18 06:43 Pulse Rate 66 07/08/18 09:55 Respiratory Rate 18 07/08/18 09:55 Blood Pressure 199/110 H 07/08/18 09:55 O2 Sat by Pulse Oximetry (%) 100 07/08/18 09:55 Constitutional: Yes: No Distress, Calm Neck: Yes: Supple Respiratory: Yes: Regular, CTA Bilaterally Gastrointestinal: Yes: Normal Bowel Sounds, Soft Cardiovascular: Yes: Regular Rate and Rhythm JVD: No Carotid Bruit: No Heart Sounds: Yes: S1, S2 Edema: No - Other Data Labs, Other Data: CBC, BMP 07/08/18 04:50 Troponin, BNP 07/08/18 07/08/18 04:50 10:02 Troponin I 0.04 0.04 Troponin, BNP 07/08/18 07/08/18 04:50 10:02 Troponin I 0.04 0.04 SB @ 56 LAE, LVH with repol abnl Ejection Fraction %: LVEF > or = 40 % Problem List - Problems (1) Hypertensive heart disease Code(s): I11.9 - HYPERTENSIVE HEART DISEASE WITHOUT HEART FAILURE Qualifiers: Heart failure presence: without heart failure Qualified Code(s): I11.9 - Hypertensive heart disease without heart failure (2) Hyperlipidemia Code(s): E78.5 - HYPERLIPIDEMIA, UNSPECIFIED Qualifiers: Hyperlipidemia type: pure hypercholesterolemia Qualified Code(s): E78.00 - Pure hypercholesterolemia, unspecified; E78.0 - Pure hypercholesterolemia (3) Chest pain Code(s): R07.9 - CHEST PAIN, UNSPECIFIED Qualifiers: Chest pain type: unspecified Qualified Code(s): R07.9 - Chest pain, unspecified (4) Cocaine dependence Code(s): F14.20 - COCAINE DEPENDENCE, UNCOMPLICATED Qualifiers: Substance use status: uncomplicated Qualified Code(s): F14.20 - Cocaine dependence, uncomplicated Assessment/Plan 1. Chest pain with negative caths most recently at [facility] 2. Cocaine abuse 3. Hypertensive heart disease 4. Hyperlipidemia P:1. Ruled out for NC 2. Continue ASA 81 qd, Procardia XL 90 qd, Lipitor 40 qd, Vasotec 5 qd, Imdur 60 qd with uptitration as tolerated 3. Cocaine abstinence, check tox screen 4. Thank you for consultative opportunity
--- NOTE | 2018-07-08 12:57 | EKG ---
Test Reason : Blood Pressure : / mmHG Vent. Rate : 056 BPM Atrial Rate : 056 BPM P-R Int : 156 ms QRS Dur : 092 ms QT Int : 460 ms P-R-T Axes : 054 020 166 degrees QTc Int : 443 ms SINUS BRADYCARDIA POSSIBLE LEFT ATRIAL ENLARGEMENT LEFT VENTRICULAR HYPERTROPHY WITH REPOLARIZATION ABNORMALITY ABNORMAL ECG WHEN COMPARED WITH ECG OF 08-JUL-2018 09:59, T WAVE INVERSION IS SEEN IN INFERIOR LEADS Confirmed by SHARYN KIMBLE, NICOL ([id number]) on 07/08/2018 12:57:00 PM Referred By: Confirmed By:NICOL COLES MD
[2018-07-08 17:47] LABS: COCAINE, UR NEGATIVE ng/ml (CUTOFF=300); METHADONE, UR NEGATIVE ng/ml (CUTOFF=300); OPIATES, URI NEGATIVE ng/ml (CUTOFF=300); PHENCYCLIDINE,URINE NEGATIVE ng/ml (CUTOFF=25); URINE AMPHETAMINES NEGATIVE ng/ml (CUTOFF=500); URINE BARBITURATES NEGATIVE ng/ml (CUTOFF=200); URINE BENZODIAZEPINES NEGATIVE ng/ml (CUTOFF=200)
--- NOTE | 2018-07-08 17:54 | HP ---
Admitting History and Physical - Primary Care Physician PCP: Parish Robles - Admission Chief Complaint: chest pain History of Present Illness: Mr. Restrepo is a 52 yo male w/ pmh of HTN heart disease, nonobstructive CAD angina , Asthma, Alcohol and cocaine abuse who presents for evaluation of sternal chest pain he reports is typical of his normal angina. Patient reports he was awaken from sleep at approximately 3:30am this morning. Pain lasted for approximately 10 minutes before it improved. Mr. Restrepo presents from [facility] where he is in rehab following 2 days of cocaine use on the 30 and 30st of May. He is currently asymptomatic and denies chest pain, dyspnea, near or true syncope, palpitations, orthopnea, PND or LE edema. - - Past Medical History Cardiovascular: Yes: CAD, HTN Pulmonary: Yes: Asthma - Smoking History Smoking history: Current every day smoker Have you smoked in the past 12 months: Yes Aproximately how many cigarettes per day: 4 - Alcohol/Substance Use Hx Alcohol Use: Yes (Alcohol- "couple of six packs") Home Medications - Allergies Allergies/Adverse Reactions: Allergies Allergy/AdvReac Type Severity Reaction Status Date / Time hydrochlorothiazide Allergy loss Verified 07/08/18 04:45 weight, seizure DIURETICS Allergy loss Uncoded 07/08/18 04:45 weight, seizure - Home Medications Home Medications: Ambulatory Orders Bupropion HCl [Bupropion Xl] 150 mg PO DAILY #30 tab.er.24h 05/23/17 Aspirin 81 mg PO DAILY 07/01/18 Atorvastatin Ca [Lipitor] 40 mg PO DAILY 07/01/18 Isosorbide Mononitrate [Isosorbide Mononitrate ER] 60 mg PO DAILY 07/01/18 Tamsulosin HCl [Flomax] 0.4 mg PO HS@2100 07/01/18 Nitroglycerin 0.4 mg SL PRN PRN 07/08/18 Enalapril Maleate [Vasotec -] 10 mg PO BID tablet 07/09/18 Nifedipine ER [Procardia XL -] 60 mg PO DAILY tab.er.24 07/09/18 Family Disease History - Family Disease History Family Disease History: Heart Disease: Mother (AIDS; ), Other: Grandparent (ETOH DEPENDENT ), Father (ETOH DEPENDENT ), Mother, Brother ( /) Physical Examination Vital Signs: Vital Signs Temperature 98.4 F 07/08/18 06:43 Pulse Rate 57 L 07/08/18 16:00 Respiratory Rate 14 07/08/18 16:00 Blood Pressure 140/84 07/08/18 16:00 O2 Sat by Pulse Oximetry (%) 99 07/08/18 16:00 Constitutional: Yes: No Distress HENT: Yes: Atraumatic Neck: Yes: Supple Cardiovascular: Yes: Regular Rate and Rhythm Respiratory: Yes: CTA Bilaterally Gastrointestinal: Yes: Normal Bowel Sounds Extremities: Yes: WNL Edema: No 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: Yes: Alert, Oriented Labs: CBC, BMP 07/08/18 04:50 Problem List - Problems (1) Alcohol dependence Code(s): F10.20 - ALCOHOL DEPENDENCE, UNCOMPLICATED (2) Chest pain Assessment/Plan: TELE MONITORING FU CARDIAC ENZYMES CARDIOLOGY CONSULT Code(s): R07.9 - CHEST PAIN, UNSPECIFIED Qualifiers: Chest pain type: unspecified Qualified Code(s): R07.9 - Chest pain, unspecified (3) Hyperlipidemia Assessment/Plan: ON MEDS Code(s): E78.5 - HYPERLIPIDEMIA, UNSPECIFIED Qualifiers: Hyperlipidemia type: pure hypercholesterolemia Qualified Code(s): E78.00 - Pure hypercholesterolemia, unspecified; E78.0 - Pure hypercholesterolemia (4) Hypertensive heart disease Assessment/Plan: ON MEDS Code(s): I11.9 - HYPERTENSIVE HEART DISEASE WITHOUT HEART FAILURE Qualifiers: Heart failure presence: without heart failure Qualified Code(s): I11.9 - Hypertensive heart disease without heart failure (5) Cocaine dependence Code(s): F14.20 - COCAINE DEPENDENCE, UNCOMPLICATED Qualifiers: Substance use status: uncomplicated Qualified Code(s): F14.20 - Cocaine dependence, uncomplicated Assessment/Plan Laboratory Tests 07/08/18 07/08/18 07/08/18 04:50 10:02 17:05 Sodium 142 Potassium 3.9 Chloride 108 H Carbon Dioxide 28 Anion Gap 5 L BUN 28 H Creatinine 1.2 Creat Clearance w eGFR > 60 Random Glucose 93 Calcium 8.8 Total Bilirubin 0.4 AST 18 ALT 34 Alkaline Phosphatase 59 Creatine Kinase 99 121 Troponin I 0.04 0.04 Total Protein 6.7 Albumin 3.1 L Opiates Screen Negative Methadone Screen Negative Barbiturate Screen Negative Phencyclidine Screen Negative Ur Amphetamines Screen Negative MDMA (Ecstasy) Screen Negative Benzodiazepines Screen Negative Cocaine Screen Negative U Marijuana (THC) Screen Negative Active Medications Generic Name Dose Route Start Last Admin Trade Name Benjaminq PRN Reason Stop Dose Admin Aspirin 81 mg 07/09/18 10:00 07/09/18 09:37 Asa - PO 81 mg DAILY FLORECITA Administration Atorvastatin Calcium 40 mg 07/08/18 22:00 07/08/18 22:24 Lipitor - PO 40 mg HS FLORECITA Administration Bupropion HCl 150 mg 07/09/18 10:00 07/09/18 11:15 Wellbutrin Xl - PO 150 mg DAILY FLORECITA Administration Enalapril Maleate 10 mg 07/09/18 10:00 07/09/18 09:43 Vasotec - PO 10 mg BID FLORECITA Administration Isosorbide Mononitrate 60 mg 07/09/18 10:00 07/09/18 09:37 Imdur - PO 60 mg DAILY FLORECITA Administration Nifedipine 60 mg 07/09/18 10:00 07/09/18 09:43 Procardia Xl - PO 60 mg DAILY FLORECITA Administration Tamsulosin HCl 0.4 mg 07/08/18 21:00 07/08/18 22:25 Flomax - PO 0.4 mg HS@2100 FLORECITA Administration
[2018-07-08] MEDS ORDERED: TAMSULOSIN HCL 0.4 MG CAP PO SCH (21:00)
[2018-07-08] MEDS ORDERED: ATORVASTATIN CA 40 MG TABLET (FP) PO SCH (22:00)
[2018-07-08 22:48] VITALS: BMI 28.8
--- NOTE | 2018-07-09 07:14 | PN ---
Progress Note (short form) - Note Progress Note: Chief Complaint: Events noted, notes reviewed, vague chest discomfort earlier today, currently asymptomatic History of Present Illness: Seen and examined on telemetry. Events noted, notes reviewed, vague chest discomfort earlier today, currently asymptomatic EKG noted essentially unchanged from prior studies, CPK and Troponin I levels noted no indications for ACS, mild elevation in Troponin I is related to demand ischemia - Current Medication List Current Medications Aspirin (Asa -) 81 mg PO DAILY [facility] Atorvastatin Calcium (Lipitor -) 40 mg PO HS [facility] Last Admin: 07/08/18 22:24 Dose: 40 mg Bupropion HCl (Wellbutrin Xl -) 150 mg PO DAILY [facility] Enalapril Maleate (Vasotec -) 5 mg PO DAILY [facility] Isosorbide Mononitrate (Imdur -) 60 mg PO DAILY [facility] Tamsulosin HCl (Flomax -) 0.4 mg PO HS@2100 [facility] Last Admin: 07/08/18 22:25 Dose: 0.4 mg Review of Systems Constitutional: denies: Chills, Fever Cardiovascular: As Noted Above Respiratory: denies: Cough or Sputum Production Gastrointestinal: denies: Nausea, Vomiting, Constipation or Abdominal Pain Genitourinary: denies: Dysuria Musculoskeletal: No Symptoms Reported 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: denies: Dizziness, Headache - Objective Vital Signs: Last Vital Signs Temp Pulse Resp BP Pulse Ox 98.2 F 57 L 20 159/84 19 L 07/09/18 06:15 07/09/18 06:15 07/09/18 06:15 07/09/18 06:15 07/08/18 18:40 Intake & Output 07/06/18 07/07/18 07/08/18 07/09/18 23:59 23:59 23:59 23:59 Intake Total 360 120 Balance 360 120 Weight 237 lb Neck: Supple Negative JVD Cardiovascular: S1 S2 Regular Rate and Rhythm Respiratory: Clear to A&P Bilaterally Gastrointestinal: Soft Benign Normal Bowel Sounds Ext: Negative Edema Labs: CBC, BMP 07/08/18 04:50 Troponin, BNP 07/08/18 07/08/18 07/09/18 10:02 19:30 06:45 Troponin I 0.04 0.09 H 0.04 Assessment/Plan ASSESSMENT: 1. Chest pain syndrome with mild elevation of Troponin I consistent with demand ischemia, in context of drug abuse, 2. Cocaine abuse 3. Hypertensive cardiovascular disease, not at goal 4. Hyperlipidemia 5. CKD PLAN: 1. Continue ASA 2. Continue/resume Procardia XL 3. Continue Vasotec and titrate dosage as needed and as tolerated 4. Continue Imdur 5. Continue Lipitor 6. Counselled Cocaine abstinence 7. Obtain echocardiography to evaluate LV size and function Deacon Yeung M.D.
[2018-07-09] MEDS ORDERED: PT OWN MED DRAWER 7, Y5N ONE ×2 (09:22→09:42)
[2018-07-09] MEDS ORDERED: ENALAPRIL MALEATE 10 MG TABLET (FP) PO SCH (10:00)
[2018-07-09] MEDS ORDERED: ISOSORBIDE MONONITRATE 60 MG TAB.SR.24H (FP) PO SCH (10:00)
[2018-07-09] MEDS ORDERED: NIFEdipine E.R 60 MG TABLET (UD) PO SCH (10:00)
[2018-07-09] MEDS ORDERED: ENALAPRIL MALEATE 5 MG TABLET (FP) PO SCH (10:00)
[2018-07-09] MEDS ORDERED: ASPIRIN 81 MG CHEWABLE TABLETS PO SCH (10:00)
--- NOTE | 2018-07-09 16:03 | PN ---
Progress Note, Physician - Current Medication List Current Medications: Active Medications Aspirin (Asa -) 81 mg PO DAILY [facility] Last Admin: 07/09/18 09:37 Dose: 81 mg Atorvastatin Calcium (Lipitor -) 40 mg PO HS [facility] Last Admin: 07/08/18 22:24 Dose: 40 mg Bupropion HCl (Wellbutrin Xl -) 150 mg PO DAILY [facility] Last Admin: 07/09/18 11:15 Dose: 150 mg Enalapril Maleate (Vasotec -) 10 mg PO BID [facility] Last Admin: 07/09/18 09:43 Dose: 10 mg Isosorbide Mononitrate (Imdur -) 60 mg PO DAILY [facility] Last Admin: 07/09/18 09:37 Dose: 60 mg Nifedipine (Procardia Xl -) 60 mg PO DAILY [facility] Last Admin: 07/09/18 09:43 Dose: 60 mg Tamsulosin HCl (Flomax -) 0.4 mg PO HS@2100 [facility] Last Admin: 07/08/18 22:25 Dose: 0.4 mg - Objective Vital Signs: Vital Signs Temperature 98.8 F 07/09/18 15:00 Pulse Rate 73 07/09/18 15:00 Respiratory Rate 20 07/09/18 15:00 Blood Pressure 120/73 07/09/18 15:00 O2 Sat by Pulse Oximetry (%) 19 L 07/08/18 18:40 Constitutional: Yes: No Distress HENT: Yes: Atraumatic Neck: Yes: Supple Cardiovascular: Yes: Regular Rate and Rhythm Respiratory: Yes: CTA Bilaterally Gastrointestinal: Yes: Normal Bowel Sounds Extremities: Yes: WNL Peripheral Pulses WNL: Yes 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: Yes: Alert, Oriented Labs: CBC, BMP 07/08/18 04:50 Problem List - Problems (1) Alcohol dependence Code(s): F10.20 - ALCOHOL DEPENDENCE, UNCOMPLICATED (2) Chest pain Code(s): R07.9 - CHEST PAIN, UNSPECIFIED Qualifiers: Chest pain type: unspecified Qualified Code(s): R07.9 - Chest pain, unspecified (3) Hyperlipidemia Code(s): E78.5 - HYPERLIPIDEMIA, UNSPECIFIED Qualifiers: Hyperlipidemia type: pure hypercholesterolemia Qualified Code(s): E78.00 - Pure hypercholesterolemia, unspecified; E78.0 - Pure hypercholesterolemia (4) Hypertensive heart disease Code(s): I11.9 - HYPERTENSIVE HEART DISEASE WITHOUT HEART FAILURE Qualifiers: Heart failure presence: without heart failure Qualified Code(s): I11.9 - Hypertensive heart disease without heart failure (5) Cocaine dependence Code(s): F14.20 - COCAINE DEPENDENCE, UNCOMPLICATED Qualifiers: Substance use status: uncomplicated Qualified Code(s): F14.20 - Cocaine dependence, uncomplicated
--- NOTE | 2018-07-09 16:19 | ECHO ---
Name: YONATAN ROGER Exam:Adult Echocardiogram Study Date: 07/09/2018 11:32 AM Age: 52 yrs Reason For Study: Chest pain Height: 76 in Weight: 235 lb BSA: 2.4 m2 MMode/2D Measurements & Calculations IVSd: 1.2 cm Ao root diam: 4.0 cm LVIDd: 5.4 cm LA dimension: 3.7 cm LVIDs: 3.9 cm LVPWd: 1.3 cm EDV(Teich): 141.2 ml LVOT diam: 2.4 cm ESV(Teich): 65.9 ml RV S Christopher: 17.1 cm/sec Doppler Measurements & Calculations MV E max christopher: 60.7 cm/sec Ao V2 max: 152.0 cm/sec MV A max christopher: 62.7 cm/sec Ao max P.2 mmHg MV E/A: 0.97 TR max P.0 mmHg Med Peak E' Christopher: 4.8 cm/sec RVSP(TR): 21.0 mmHg Med E/e': 12.6 Lat Peak E' Christopher: 5.3 cm/sec Lat E/e': 11.5 RAP systole: 5.0 mmHg Left Ventricle Mild LV hypertrophy with normal LV function. Ejection Fraction = 53%. Right Ventricle Normal RV size and function. Atria Normal left and right atrial size and function. Mitral Valve The mitral valve leaflets appear normal. There is no evidence of stenosis, fluttering, or prolapse. Tricuspid Valve The tricuspid valve is normal. There is mild tricuspid regurgitation. Aortic Valve The aortic valve is normal in structure and function. Pulmonic Valve The pulmonic valve leaflets are thin and pliable; valve motion is normal. Great Vessels The aortic root is normal size. Interpretation Summary Mild LV hypertrophy with normal LV function. Ejection Fraction = 53%. Normal RV size and function. Normal left and right atrial size and function. The mitral valve leaflets appear normal. There is no evidence of stenosis, fluttering, or prolapse. There is mild tricuspid regurgitation. The tricuspid valve is normal. The aortic valve is normal in structure and function. The aortic root is normal size. MD Darryl Barrera 07/09/2018 04:19 PM
--- NOTE | 2018-07-09 17:22 | DS ---
Physical Examination Vital Signs: Vital Signs Temperature 98.8 F 07/09/18 15:00 Pulse Rate 73 07/09/18 15:00 Respiratory Rate 20 07/09/18 15:00 Blood Pressure 120/73 07/09/18 15:00 O2 Sat by Pulse Oximetry (%) 19 L 07/08/18 18:40 Constitutional: Yes: No Distress HENT: Yes: Atraumatic Neck: Yes: Supple Cardiovascular: Yes: Regular Rate and Rhythm Respiratory: Yes: CTA Bilaterally Gastrointestinal: Yes: Normal Bowel Sounds Extremities: Yes: WNL Edema: No Peripheral Pulses WNL: Yes 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: Yes: Alert, Oriented Labs: CBC, BMP 07/08/18 04:50 Discharge Summary Reason For Visit: CHEST PAIN Current Active Problems Chest pain (Acute) Hyperlipidemia (Acute) Hypertensive heart disease (Acute) Condition: Stable - Instructions Diet, Activity, Other Instructions: You were evaluated today in the ER for your chest pain. We evaluated you with cardiac labs as well as EKG. No concerning findings were found at this time. Please follow-up with primary care provider for further evaluation. Return to ER if any fever, chills, further pain, or other concerning findings. - Home Medications Comprehensive Discharge Medication List: Ambulatory Orders Bupropion HCl [Bupropion Xl] 150 mg PO DAILY #30 tab.er.24h 05/23/17 Aspirin 81 mg PO DAILY 07/01/18 Atorvastatin Ca [Lipitor] 40 mg PO DAILY 07/01/18 Isosorbide Mononitrate [Isosorbide Mononitrate ER] 60 mg PO DAILY 07/01/18 Tamsulosin HCl [Flomax] 0.4 mg PO HS@2100 07/01/18 Nitroglycerin 0.4 mg SL PRN PRN 07/08/18 Enalapril Maleate [Vasotec -] 10 mg PO BID tablet 07/09/18 Nifedipine ER [Procardia XL -] 60 mg PO DAILY tab.er.24 07/09/18 [facility]
[2018-07-09 18:57] VITALS: BP 132/72; PULSE 72; TEMP 98
--- NOTE | 2018-08-08 08:12 | EKG ---
Test Reason : Blood Pressure : / mmHG Vent. Rate : 059 BPM Atrial Rate : 059 BPM P-R Int : 160 ms QRS Dur : 102 ms QT Int : 410 ms P-R-T Axes : -25 040 126 degrees QTc Int : 405 ms SINUS BRADYCARDIA LEFT VENTRICULAR HYPERTROPHY WITH REPOLARIZATION ABNORMALITY ABNORMAL ECG WHEN COMPARED WITH ECG OF 08-JUL-2018 04:36, ST NOW DEPRESSED IN LATERAL LEADS NONSPECIFIC T WAVE ABNORMALITY NO LONGER EVIDENT IN INFERIOR LEADS INVERTED T WAVES HAVE REPLACED NONSPECIFIC T WAVE ABNORMALITY IN ANTERIOR LEADS Confirmed by MD GRAY, ALEJANDRO ([id number]), school photograph editor KEITH SMITH ([id number]) on 08/08/2018 8:12:28 AM Referred By: Confirmed By:ALEJANDRO CASTELLANO MD
--- NOTE | 2018-08-08 08:13 | EKG ---
Test Reason : Blood Pressure : / mmHG Vent. Rate : 057 BPM Atrial Rate : 057 BPM P-R Int : 154 ms QRS Dur : 112 ms QT Int : 458 ms P-R-T Axes : 062 035 223 degrees QTc Int : 445 ms SINUS BRADYCARDIA LEFT VENTRICULAR HYPERTROPHY WITH REPOLARIZATION ABNORMALITY ABNORMAL ECG WHEN COMPARED WITH ECG OF 27-JUN-2018 11:59, NO SIGNIFICANT CHANGE WAS FOUND Confirmed by MD GRAY, ALEJANDRO ([id number]), editor managing director KEITH SMITH ([id number]) on 08/08/2018 8:12:48 AM Referred By: Confirmed By:ALEJANDRO CASTELLANO MD
== END 2018-07-09 20:01 | disposition other institution (70) ==
LOC: JER 04:28 → JERBED 11:58 → J4W 21:21
PROVIDERS: ADMIT Internal Medicine; ATTEND Internal Medicine
DX: R07.9 Chest pain, unspecified (principal); I11.9 Hypertensive heart disease without heart failure; E78.5 Hyperlipidemia, unspecified; F10.20 Alcohol dependence, uncomplicated; R77.8 Other specified abnormalities of plasma proteins; I24.8 Other forms of acute ischemic heart disease; I12.9 Hypertensive chronic kidney disease with stage 1 through stage 4 chronic kidney disease, or unspecified chronic kidney disease; N18.9 Chronic kidney disease, unspecified
CPT/HCPCS: 36415; 80053; 80307; 82550; 84484; 93005; 93010; 93306-TC; 99283-25; G0378

== ENCOUNTER 2018-07-09 20:27 | Inpatient (IN) | payer OTHER ==
[2018-07-09] MEDS ORDERED: MELATONIN 5 MG TABLETS PO PRN (22:00)
--- NOTE | 2018-07-09 22:30 | HP ---
[facility] Rehab Assess/Revision - Admission History Admitted to Rehab from: Emergency Department - Vital signs Vital Signs: Vital Signs Temperature 98.6 F 07/09/18 22:37 Pulse Rate 60 07/09/18 22:37 Respiratory Rate 18 07/09/18 22:37 Blood Pressure 138/83 07/09/18 22:37 O2 Sat by Pulse Oximetry (%) - Findings Detox History & Physical reviewed: Yes Concur with findings: Yes
[2018-07-09] MEDS ORDERED: NITROGLYCERIN SUBLINGUAL 1/150 0.4 MG TAB SL PRN (22:31)
[2018-07-09] MEDS ORDERED: MAGNESIUM CITRATE 300 ML BOTTLE PO PRN (22:31)
[2018-07-09] MEDS ORDERED: LOPERAMIDE HCL 2 MG CAPSULE PO PRN (22:31)
[2018-07-09] MEDS ORDERED: MAGNESIUM HYDROX 2400MG/30ML ORAL SUSPENSION 30 ML CUP PO PRN (22:31)
[2018-07-09] MEDS ORDERED: NICOTINE POLACRILEX 2 MG GUM BUC PRN (22:31)
[2018-07-09] MEDS ORDERED: P-EPHED 60MG/TRIPROLIDI 2.5MG TABLET PO PRN (22:31)
[2018-07-09] MEDS ORDERED: guaiFENesin/D-METHORPHAN HB 10 ML UNIT-DOSE CUPS PO PRN (22:31)
[2018-07-09] MEDS ORDERED: MAG HYDROX/AL HYDROX/SIMETH 30 ML UNIT-DOSE CUP PO PRN (22:31)
[2018-07-09] MEDS ORDERED: MENTHOL/PHENOL 1 EACH UD MM PRN (22:31)
[2018-07-09 22:41] VITALS: BMI 31.0
[2018-07-10] MEDS ORDERED: ISOSORBIDE MONONITRATE 60 MG TAB.SR.24H (FP) PO SCH (10:00)
[2018-07-10] MEDS ORDERED: ASPIRIN 81 MG CHEWABLE TABLETS PO SCH (10:00)
[2018-07-10] MEDS ORDERED: ENALAPRIL MALEATE 10 MG TABLET (FP) PO SCH (10:00)
[2018-07-10] MEDS ORDERED: NIFEdipine E.R 60 MG TABLET (UD) PO SCH (10:00)
[2018-07-10] MEDS: PRENATAL VITAMINS W/ FOLIC ACID TABLET (FP) PO SCH (10:20)
[2018-07-10] MEDS: NICOTINE 14 MG/24 HOURS TOPICAL PATCH TD SCH (10:21)
--- NOTE | 2018-07-10 10:41 | PN ---
Psychiatric Progress Note Vital Signs: Vital Signs Period Temp Pulse Resp BP Sys/Reid Pulse Ox Last 24 Hr 97.9 F-98.6 F 58-60 18-18 138-144/83-94 Date of Session: 07/10/18 Chief Complaint:: Readmission Note HPI: Patient addressing Alcohol, Cocaine and Sedative Dependence comorbid with Nicotine Dependence, Substance-Induced Mood Disorder and Substance-Induced Sleep Disorder ROS: Anemia, Asthma/COPD, HTN, Angina, Current Medications: Active Medications Generic Name Dose Route Start Last Admin Trade Name Freq PRN Reason Stop Dose Admin Acetaminophen 650 mg 07/09/18 22:31 Tylenol - PO Q4H PRN FEVER Al Hydroxide/Mg Hydroxide 30 ml 07/09/18 22:31 Mylanta Oral Suspension - PO Q6H PRN DYSPEPSIA Aspirin 81 mg 07/10/18 10:00 07/10/18 10:20 Asa - PO 81 mg DAILY [facility] Administration Atorvastatin Calcium 40 mg 07/10/18 22:00 Lipitor - PO HS [facility] Enalapril Maleate 10 mg 07/10/18 10:00 07/10/18 10:21 Vasotec - PO 10 mg BID [facility] Administration Eucalyptus/Menthol/Phenol/Sorbitol 1 each 07/09/18 22:31 Cepastat Lozenge - MM Q4H PRN SORE THROAT Guaifenesin 10 ml 07/09/18 22:31 Robitussin Dm - PO Q6H PRN COUGH Isosorbide Mononitrate 60 mg 07/10/18 10:00 07/10/18 10:21 Imdur - PO 60 mg DAILY [facility] Administration Loperamide HCl 4 mg 07/09/18 22:31 Imodium - PO Q6H PRN DIARRHEA Magnesium Citrate 300 ml 07/09/18 22:31 Citroma - PO Q48H PRN CONSTIPATION Magnesium Hydroxide 30 ml 07/09/18 22:31 Milk Of Magnesia - PO DAILY PRN CONSTIPATION Melatonin 5 mg 07/09/18 22:00 Melatonin PO HS PRN INSOMNIA Nicotine 14 mg 07/10/18 10:00 07/10/18 10:21 Nicoderm Patch - TD Not Given DAILY [facility] Nicotine Polacrilex 2 mg 07/09/18 22:31 Nicorette Gum - BUC Q2H PRN NICOTINE REPLACEMENT RX Nifedipine 60 mg 07/10/18 10:00 07/10/18 10:20 Procardia Xl - PO 60 mg DAILY [facility] Administration Nitroglycerin 0.4 mg 07/09/18 22:31 Nitrostat - SL PRN PRN FOR CHEST PAIN Multivit/Folic Acid/Iron 1 tab 07/10/18 10:00 07/10/18 10:20 Vitamins (Sjr) - PO 1 tab DAILY [facility] Administration Pseudoephedrine/Triprolidine 1 combo 07/09/18 22:31 Actifed - PO TID PRN NASAL CONGESTION Tamsulosin HCl 0.4 mg 07/10/18 21:00 Flomax - PO HS@2100 [facility] Thiamine HCl 100 mg 07/10/18 22:00 Vitamin B1 - PO HS [facility] Current Side Effect: No Lab tests ordered: Yes Lab tests reviewed: Yes Provider note:: Patient was transferred back on 07/09/18 from [facility] where he was referred on 07/08/18 for evaluation of chest pain. He was originally admitted to inpt detox in this facility on 06/26/18. After completing detox he was referred to inpt rehab on 06/29/18. While in rehab, he developed chest pain on 07/08/18 and he was transferred to [facility] for evaluation. After completing a battery of appropriate tests which did not yield to any positive findings ecxept for mild elevation of Troponin I, he was transferred [facility] with the diagnosis of chest pain syndrome with mild elevation of troponin I consistent with demand ischemia, in the context of drug use. Total face to face time:: 25 Mental Status Exam - Mental Status Exam Alert and Oriented to: Time, Place, Person Cognitive Function: Fair Patient Appearance: Well Groomed Mood: Hopeful, Euthymic Affect: Appropriate Patient Behavior: Cooperative Speech Pattern: Clear Voice Loudness: Normal Thought Process: Intact, Goal Oriented Hallucinations: Denies Suicidal Ideation: Denies Homicidal Ideation: Denies Insight/Judgement: Fair Sleep: Fair Appetite: Good Muscle strength/Tone: Normal Gait/Station: Normal Psychiatric Treatment Plan - Problem List (1) Alcohol dependence Current Visit: No (2) Cocaine dependence Current Visit: No Qualifiers: Substance use status: uncomplicated Qualified Code(s): F14.20 - Cocaine dependence, uncomplicated (3) Sedative hypnotic or anxiolytic dependence Current Visit: Yes (4) Nicotine dependence Current Visit: Yes (5) PTSD (post-traumatic stress disorder) Current Visit: No Comment: Self-report.Non compliant with medications. (6) Substance induced mood disorder Current Visit: No (7) Substance-induced sleep disorder Current Visit: Yes Initial treatment plan: 1) Continue Welbutrin XL 150mg po daily and Belsomra 10 mg po HS prn for insomnia. 2) Monitor progress
[2018-07-10] MEDS ORDERED: COLLOIDAL OATMEAL 1 BAR EACH TP PRN (14:17)
[2018-07-10] MEDS ORDERED: MINERAL OIL/PETROLAT/WATER TOPICAL CREAM 113 GM JAR TP SCH (14:30)
--- NOTE | 2018-07-10 15:47 | PN ---
S Progress Note Note: PT RETURNED FROM [facility] INPATIENT ADMISSION DUE TO C/O CHEST PAIN YESTERDAY. ALERT OX 3. NO C/O DISCOMFORT. PT REQUESTED CHANGE OF CARDIAC MED SCHEDULE TO 6 A.M DAILY INSTEAD OF 10:00 A.M. Vital Signs - 24 hr 07/09/18 07/10/18 07/10/18 22:37 01:07 03:30 Temperature 98.6 F Pulse Rate 60 Respiratory 18 18 18 Rate Blood Pressure 138/83 07/10/18 07/10/18 07:05 10:00 Temperature 97.9 F Pulse Rate 58 L 57 L Respiratory 18 Rate Blood Pressure 144/94 149/80 NAD PLAN:CHANGE CARDIAC MED SCHEDULE TO 6:00 A.M DIRECTED.
--- NOTE | 2018-07-10 15:49 | PN ---
S Progress Note Note: C/O DRY SKIN AND DRY ITCHY FEET. Vital Signs 07/10/18 10:00 Pulse Rate 57 L Blood Pressure 149/80 FEET:DRY AND SCALY/ASHY. PLAN:TINACTIN CREAM APPLY DIRECTED AVEENO SOAP EUCERINE CREAM
[2018-07-10] MEDS: TAMSULOSIN HCL 0.4 MG CAP PO SCH (21:39)
[2018-07-10] MEDS: ATORVASTATIN CA 40 MG TABLET (FP) PO SCH (21:39)
[2018-07-10] MEDS: THIAMINE HCL 100 MG TABLET (FP) PO SCH (21:39)
[2018-07-10] MEDS: TOLNAFTATE 1% CREAM 15 GM TUBE TP SCH (22:48)
[2018-07-10] MEDS: ENALAPRIL MALEATE 10 MG TABLET (FP) PO SCH (22:48)
[2018-07-11] MEDS ORDERED: ASPIRIN 81 MG CHEWABLE TABLETS PO SCH (06:00)
[2018-07-11] MEDS: NIFEdipine E.R 60 MG TABLET (UD) PO SCH ×2 (06:46→10:40)
[2018-07-11] MEDS: ISOSORBIDE MONONITRATE 30 MG TAB.SR.24H (FP) PO SCH (06:46)
[2018-07-11] MEDS: ENALAPRIL MALEATE 10 MG TABLET (FP) PO SCH ×2 (06:47→21:48)
[2018-07-11] MEDS ORDERED: COLLOIDAL OATMEAL 1 BAR EACH TP PRN (09:35)
[2018-07-11] MEDS: PRENATAL VITAMINS W/ FOLIC ACID TABLET (FP) PO SCH (10:38)
[2018-07-11] MEDS: AMMONIUM LACTATE 12% LOTION 225 GM BOTTLE TP SCH (10:38)
[2018-07-11] MEDS: NICOTINE 14 MG/24 HOURS TOPICAL PATCH TD SCH (10:38)
[2018-07-11] MEDS: TOLNAFTATE 1% CREAM 15 GM TUBE TP SCH ×2 (10:39→21:48)
[2018-07-11] MEDS: THIAMINE HCL 100 MG TABLET (FP) PO SCH (21:47)
[2018-07-11] MEDS: ATORVASTATIN CA 40 MG TABLET (FP) PO SCH (21:47)
[2018-07-11] MEDS: TAMSULOSIN HCL 0.4 MG CAP PO SCH (21:48)
[2018-07-12] MEDS: ENALAPRIL MALEATE 10 MG TABLET (FP) PO SCH ×2 (06:21→21:57)
[2018-07-12] MEDS: NIFEdipine E.R 60 MG TABLET (UD) PO SCH (06:21)
[2018-07-12] MEDS: ASPIRIN 81 MG CHEWABLE TABLETS PO SCH (06:21)
[2018-07-12] MEDS: ISOSORBIDE MONONITRATE 30 MG TAB.SR.24H (FP) PO SCH (06:21)
[2018-07-12] MEDS: PRENATAL VITAMINS W/ FOLIC ACID TABLET (FP) PO SCH (10:26)
[2018-07-12] MEDS: NICOTINE 14 MG/24 HOURS TOPICAL PATCH TD SCH (10:27)
[2018-07-12] MEDS: TOLNAFTATE 1% CREAM 15 GM TUBE TP SCH ×2 (10:27→21:59)
[2018-07-12] MEDS: AMMONIUM LACTATE 12% LOTION 225 GM BOTTLE TP SCH (10:27)
[2018-07-12] MEDS: THIAMINE HCL 100 MG TABLET (FP) PO SCH (21:57)
[2018-07-12] MEDS: TAMSULOSIN HCL 0.4 MG CAP PO SCH (21:57)
[2018-07-12] MEDS: ATORVASTATIN CA 40 MG TABLET (FP) PO SCH (21:57)
[2018-07-13] MEDS: ISOSORBIDE MONONITRATE 30 MG TAB.SR.24H (FP) PO SCH (06:38)
[2018-07-13] MEDS: ENALAPRIL MALEATE 10 MG TABLET (FP) PO SCH ×2 (06:38→21:59)
[2018-07-13] MEDS: NIFEdipine E.R 60 MG TABLET (UD) PO SCH (06:39)
[2018-07-13] MEDS: ASPIRIN 81 MG CHEWABLE TABLETS PO SCH (06:39)
[2018-07-13] MEDS: NICOTINE 14 MG/24 HOURS TOPICAL PATCH TD SCH (10:19)
[2018-07-13] MEDS: AMMONIUM LACTATE 12% LOTION 225 GM BOTTLE TP SCH (10:19)
[2018-07-13] MEDS: PRENATAL VITAMINS W/ FOLIC ACID TABLET (FP) PO SCH (10:19)
[2018-07-13] MEDS: TOLNAFTATE 1% CREAM 15 GM TUBE TP SCH ×2 (10:20→21:59)
[2018-07-13] MEDS: THIAMINE HCL 100 MG TABLET (FP) PO SCH (21:57)
[2018-07-13] MEDS: ATORVASTATIN CA 40 MG TABLET (FP) PO SCH (21:57)
[2018-07-13] MEDS: TAMSULOSIN HCL 0.4 MG CAP PO SCH (21:57)
[2018-07-14] MEDS: ISOSORBIDE MONONITRATE 30 MG TAB.SR.24H (FP) PO SCH (06:16)
[2018-07-14] MEDS: NIFEdipine E.R 60 MG TABLET (UD) PO SCH (06:16)
[2018-07-14] MEDS: ENALAPRIL MALEATE 10 MG TABLET (FP) PO SCH ×2 (06:16→21:42)
[2018-07-14] MEDS: ASPIRIN 81 MG CHEWABLE TABLETS PO SCH (06:16)
[2018-07-14] MEDS: TOLNAFTATE 1% CREAM 15 GM TUBE TP SCH ×2 (10:39→22:32)
[2018-07-14] MEDS: PRENATAL VITAMINS W/ FOLIC ACID TABLET (FP) PO SCH (10:40)
[2018-07-14] MEDS: NICOTINE 14 MG/24 HOURS TOPICAL PATCH TD SCH (10:40)
[2018-07-14] MEDS: AMMONIUM LACTATE 12% LOTION 225 GM BOTTLE TP SCH (10:40)
[2018-07-14] MEDS: TAMSULOSIN HCL 0.4 MG CAP PO SCH (21:41)
[2018-07-14] MEDS: THIAMINE HCL 100 MG TABLET (FP) PO SCH (21:41)
[2018-07-14] MEDS: ATORVASTATIN CA 40 MG TABLET (FP) PO SCH (21:41)
[2018-07-15] MEDS: ISOSORBIDE MONONITRATE 30 MG TAB.SR.24H (FP) PO SCH (06:45)
[2018-07-15] MEDS: ASPIRIN 81 MG CHEWABLE TABLETS PO SCH (06:45)
[2018-07-15] MEDS: NIFEdipine E.R 60 MG TABLET (UD) PO SCH (06:45)
[2018-07-15] MEDS: ENALAPRIL MALEATE 10 MG TABLET (FP) PO SCH ×2 (07:04→22:19)
[2018-07-15] MEDS: AMMONIUM LACTATE 12% LOTION 225 GM BOTTLE TP SCH (10:56)
[2018-07-15] MEDS: PRENATAL VITAMINS W/ FOLIC ACID TABLET (FP) PO SCH (10:57)
[2018-07-15] MEDS: TOLNAFTATE 1% CREAM 15 GM TUBE TP SCH ×2 (10:57→22:02)
[2018-07-15] MEDS: NICOTINE 14 MG/24 HOURS TOPICAL PATCH TD SCH (10:57)
[2018-07-15] MEDS: ATORVASTATIN CA 40 MG TABLET (FP) PO SCH (22:01)
[2018-07-15] MEDS: TAMSULOSIN HCL 0.4 MG CAP PO SCH (22:01)
[2018-07-15] MEDS: THIAMINE HCL 100 MG TABLET (FP) PO SCH (22:02)
[2018-07-16] MEDS: ISOSORBIDE MONONITRATE 30 MG TAB.SR.24H (FP) PO SCH (06:44)
[2018-07-16] MEDS: NIFEdipine E.R 60 MG TABLET (UD) PO SCH (06:44)
[2018-07-16] MEDS: ASPIRIN 81 MG CHEWABLE TABLETS PO SCH (06:44)
[2018-07-16] MEDS: ENALAPRIL MALEATE 10 MG TABLET (FP) PO SCH ×2 (06:44→21:48)
[2018-07-16] MEDS: PRENATAL VITAMINS W/ FOLIC ACID TABLET (FP) PO SCH (10:27)
[2018-07-16] MEDS: NICOTINE 14 MG/24 HOURS TOPICAL PATCH TD SCH (10:27)
[2018-07-16] MEDS: TOLNAFTATE 1% CREAM 15 GM TUBE TP SCH ×2 (10:28→21:49)
[2018-07-16] MEDS: AMMONIUM LACTATE 12% LOTION 225 GM BOTTLE TP SCH (10:28)
[2018-07-16] MEDS: THIAMINE HCL 100 MG TABLET (FP) PO SCH (21:48)
[2018-07-16] MEDS: ATORVASTATIN CA 40 MG TABLET (FP) PO SCH (21:48)
[2018-07-16] MEDS: TAMSULOSIN HCL 0.4 MG CAP PO SCH (21:49)
[2018-07-17] MEDS: ENALAPRIL MALEATE 10 MG TABLET (FP) PO SCH ×2 (06:26→21:51)
[2018-07-17] MEDS: NIFEdipine E.R 60 MG TABLET (UD) PO SCH (06:26)
[2018-07-17] MEDS: ASPIRIN 81 MG CHEWABLE TABLETS PO SCH (06:26)
[2018-07-17] MEDS: ISOSORBIDE MONONITRATE 30 MG TAB.SR.24H (FP) PO SCH (06:26)
[2018-07-17] MEDS: PRENATAL VITAMINS W/ FOLIC ACID TABLET (FP) PO SCH (10:27)
[2018-07-17] MEDS: NICOTINE 14 MG/24 HOURS TOPICAL PATCH TD SCH (10:27)
[2018-07-17] MEDS: TOLNAFTATE 1% CREAM 15 GM TUBE TP SCH ×2 (10:29→21:52)
[2018-07-17] MEDS: AMMONIUM LACTATE 12% LOTION 225 GM BOTTLE TP SCH (10:29)
[2018-07-17] MEDS: TAMSULOSIN HCL 0.4 MG CAP PO SCH (21:51)
[2018-07-17] MEDS: THIAMINE HCL 100 MG TABLET (FP) PO SCH (21:51)
[2018-07-17] MEDS: ATORVASTATIN CA 40 MG TABLET (FP) PO SCH (21:51)
[2018-07-18] MEDS: ACETAMINOPHEN 325 MG TABLET (FP) PO PRN ×4 (01:25→21:52)
[2018-07-18] MEDS: ASPIRIN 81 MG CHEWABLE TABLETS PO SCH (06:37)
[2018-07-18] MEDS: ENALAPRIL MALEATE 10 MG TABLET (FP) PO SCH ×2 (06:37→21:50)
[2018-07-18] MEDS: ISOSORBIDE MONONITRATE 30 MG TAB.SR.24H (FP) PO SCH (06:37)
[2018-07-18] MEDS: NIFEdipine E.R 60 MG TABLET (UD) PO SCH (06:37)
[2018-07-18] MEDS: NICOTINE 14 MG/24 HOURS TOPICAL PATCH TD SCH (10:39)
[2018-07-18] MEDS: PRENATAL VITAMINS W/ FOLIC ACID TABLET (FP) PO SCH (10:39)
[2018-07-18] MEDS: TOLNAFTATE 1% CREAM 15 GM TUBE TP SCH ×2 (10:39→21:53)
[2018-07-18] MEDS: AMMONIUM LACTATE 12% LOTION 225 GM BOTTLE TP SCH (10:39)
[2018-07-18] MEDS: TAMSULOSIN HCL 0.4 MG CAP PO SCH (21:50)
[2018-07-18] MEDS: THIAMINE HCL 100 MG TABLET (FP) PO SCH (21:50)
[2018-07-18] MEDS: ATORVASTATIN CA 40 MG TABLET (FP) PO SCH (21:50)
[2018-07-19] MEDS: NIFEdipine E.R 60 MG TABLET (UD) PO SCH (06:40)
[2018-07-19] MEDS: ENALAPRIL MALEATE 10 MG TABLET (FP) PO SCH ×2 (06:40→22:35)
[2018-07-19] MEDS: ISOSORBIDE MONONITRATE 30 MG TAB.SR.24H (FP) PO SCH (06:40)
[2018-07-19] MEDS: ASPIRIN 81 MG CHEWABLE TABLETS PO SCH (06:40)
[2018-07-19] MEDS ORDERED: LIDOCAINE VISCOUS 2% ORAL/TOP 20 ML UNIT-DOSE CUP MM PRN (08:31)
[2018-07-19] MEDS: PRENATAL VITAMINS W/ FOLIC ACID TABLET (FP) PO SCH (10:30)
[2018-07-19] MEDS: NICOTINE 14 MG/24 HOURS TOPICAL PATCH TD SCH (10:30)
[2018-07-19] MEDS: AMMONIUM LACTATE 12% LOTION 225 GM BOTTLE TP SCH (10:30)
[2018-07-19] MEDS: TOLNAFTATE 1% CREAM 15 GM TUBE TP SCH ×2 (10:31→22:37)
[2018-07-19] MEDS: THIAMINE HCL 100 MG TABLET (FP) PO SCH (21:54)
[2018-07-19] MEDS: TAMSULOSIN HCL 0.4 MG CAP PO SCH (21:55)
[2018-07-19] MEDS: ACETAMINOPHEN 325 MG TABLET (FP) PO PRN (21:57)
[2018-07-19] MEDS: ATORVASTATIN CA 40 MG TABLET (FP) PO SCH (22:35)
[2018-07-20] MEDS: NIFEdipine E.R 60 MG TABLET (UD) PO SCH (07:12)
[2018-07-20] MEDS: ENALAPRIL MALEATE 10 MG TABLET (FP) PO SCH ×2 (07:12→21:37)
[2018-07-20] MEDS: ISOSORBIDE MONONITRATE 30 MG TAB.SR.24H (FP) PO SCH (07:12)
[2018-07-20] MEDS: ASPIRIN 81 MG CHEWABLE TABLETS PO SCH (07:12)
[2018-07-20] MEDS: AMMONIUM LACTATE 12% LOTION 225 GM BOTTLE TP SCH (10:50)
[2018-07-20] MEDS: PRENATAL VITAMINS W/ FOLIC ACID TABLET (FP) PO SCH (10:50)
[2018-07-20] MEDS: TOLNAFTATE 1% CREAM 15 GM TUBE TP SCH ×2 (10:50→21:39)
[2018-07-20] MEDS: NICOTINE 14 MG/24 HOURS TOPICAL PATCH TD SCH (10:50)
[2018-07-20] MEDS: TAMSULOSIN HCL 0.4 MG CAP PO SCH (21:37)
[2018-07-20] MEDS: ATORVASTATIN CA 40 MG TABLET (FP) PO SCH (21:37)
[2018-07-20] MEDS: THIAMINE HCL 100 MG TABLET (FP) PO SCH (21:37)
[2018-07-20] MEDS: ACETAMINOPHEN 325 MG TABLET (FP) PO PRN (21:39)
[2018-07-21] MEDS: ASPIRIN 81 MG CHEWABLE TABLETS PO SCH (06:30)
[2018-07-21] MEDS: ISOSORBIDE MONONITRATE 30 MG TAB.SR.24H (FP) PO SCH (06:30)
[2018-07-21] MEDS: NIFEdipine E.R 60 MG TABLET (UD) PO SCH (06:30)
[2018-07-21] MEDS: ENALAPRIL MALEATE 10 MG TABLET (FP) PO SCH ×2 (06:31→21:31)
[2018-07-21] MEDS: AMMONIUM LACTATE 12% LOTION 225 GM BOTTLE TP SCH (10:35)
[2018-07-21] MEDS: TOLNAFTATE 1% CREAM 15 GM TUBE TP SCH ×2 (10:35→21:32)
[2018-07-21] MEDS: NICOTINE 14 MG/24 HOURS TOPICAL PATCH TD SCH (10:35)
[2018-07-21] MEDS: PRENATAL VITAMINS W/ FOLIC ACID TABLET (FP) PO SCH (10:35)
[2018-07-21] MEDS: ATORVASTATIN CA 40 MG TABLET (FP) PO SCH (21:31)
[2018-07-21] MEDS: TAMSULOSIN HCL 0.4 MG CAP PO SCH (21:32)
[2018-07-21] MEDS: THIAMINE HCL 100 MG TABLET (FP) PO SCH (21:32)
[2018-07-22] MEDS: ISOSORBIDE MONONITRATE 30 MG TAB.SR.24H (FP) PO SCH (06:57)
[2018-07-22] MEDS: NIFEdipine E.R 60 MG TABLET (UD) PO SCH (06:57)
[2018-07-22] MEDS: ENALAPRIL MALEATE 10 MG TABLET (FP) PO SCH ×2 (06:57→21:47)
[2018-07-22] MEDS: ASPIRIN 81 MG CHEWABLE TABLETS PO SCH (06:57)
[2018-07-22] MEDS: ACETAMINOPHEN 325 MG TABLET (FP) PO PRN ×2 (06:59→21:49)
[2018-07-22] MEDS: PRENATAL VITAMINS W/ FOLIC ACID TABLET (FP) PO SCH (10:55)
[2018-07-22] MEDS: AMMONIUM LACTATE 12% LOTION 225 GM BOTTLE TP SCH (10:55)
[2018-07-22] MEDS: TOLNAFTATE 1% CREAM 15 GM TUBE TP SCH ×2 (10:56→21:48)
[2018-07-22] MEDS: NICOTINE 14 MG/24 HOURS TOPICAL PATCH TD SCH (10:56)
[2018-07-22] MEDS: THIAMINE HCL 100 MG TABLET (FP) PO SCH (21:47)
[2018-07-22] MEDS: TAMSULOSIN HCL 0.4 MG CAP PO SCH (21:47)
[2018-07-22] MEDS: ATORVASTATIN CA 40 MG TABLET (FP) PO SCH (21:47)
[2018-07-23] MEDS ORDERED: PT OWN MED DRAWER 7, Y5N ONE (04:14)
[2018-07-23] MEDS: NIFEdipine E.R 60 MG TABLET (UD) PO SCH (06:54)
[2018-07-23] MEDS: ISOSORBIDE MONONITRATE 30 MG TAB.SR.24H (FP) PO SCH (06:55)
[2018-07-23] MEDS: ENALAPRIL MALEATE 10 MG TABLET (FP) PO SCH ×2 (06:55→21:45)
[2018-07-23] MEDS: ASPIRIN 81 MG CHEWABLE TABLETS PO SCH (06:55)
[2018-07-23] MEDS: PRENATAL VITAMINS W/ FOLIC ACID TABLET (FP) PO SCH (11:14)
[2018-07-23] MEDS: NICOTINE 14 MG/24 HOURS TOPICAL PATCH TD SCH (11:15)
[2018-07-23] MEDS: AMMONIUM LACTATE 12% LOTION 225 GM BOTTLE TP SCH (11:15)
[2018-07-23] MEDS: TOLNAFTATE 1% CREAM 15 GM TUBE TP SCH ×2 (11:15→21:46)
[2018-07-23] MEDS: TAMSULOSIN HCL 0.4 MG CAP PO SCH (21:45)
[2018-07-23] MEDS: THIAMINE HCL 100 MG TABLET (FP) PO SCH (21:45)
[2018-07-23] MEDS: ATORVASTATIN CA 40 MG TABLET (FP) PO SCH (21:45)
[2018-07-24] MEDS: ISOSORBIDE MONONITRATE 30 MG TAB.SR.24H (FP) PO SCH (06:53)
[2018-07-24] MEDS: ENALAPRIL MALEATE 10 MG TABLET (FP) PO SCH ×2 (06:54→21:48)
[2018-07-24] MEDS: ASPIRIN 81 MG CHEWABLE TABLETS PO SCH (06:54)
[2018-07-24] MEDS: NIFEdipine E.R 60 MG TABLET (UD) PO SCH (06:54)
[2018-07-24] MEDS: AMMONIUM LACTATE 12% LOTION 225 GM BOTTLE TP SCH (10:47)
[2018-07-24] MEDS: PRENATAL VITAMINS W/ FOLIC ACID TABLET (FP) PO SCH (10:47)
[2018-07-24] MEDS: NICOTINE 14 MG/24 HOURS TOPICAL PATCH TD SCH (10:47)
[2018-07-24] MEDS: TOLNAFTATE 1% CREAM 15 GM TUBE TP SCH ×2 (10:48→21:48)
[2018-07-24] MEDS: TAMSULOSIN HCL 0.4 MG CAP PO SCH (21:46)
[2018-07-24] MEDS: ATORVASTATIN CA 40 MG TABLET (FP) PO SCH (21:46)
[2018-07-24] MEDS: THIAMINE HCL 100 MG TABLET (FP) PO SCH (21:46)
[2018-07-24] MEDS: ACETAMINOPHEN 325 MG TABLET (FP) PO PRN (21:47)
[2018-07-25] MEDS: ENALAPRIL MALEATE 10 MG TABLET (FP) PO SCH ×2 (06:41→21:34)
[2018-07-25] MEDS: NIFEdipine E.R 60 MG TABLET (UD) PO SCH (06:41)
[2018-07-25] MEDS: ASPIRIN 81 MG CHEWABLE TABLETS PO SCH (06:41)
[2018-07-25] MEDS: ISOSORBIDE MONONITRATE 30 MG TAB.SR.24H (FP) PO SCH (06:41)
[2018-07-25] MEDS: PRENATAL VITAMINS W/ FOLIC ACID TABLET (FP) PO SCH (10:16)
[2018-07-25] MEDS: TOLNAFTATE 1% CREAM 15 GM TUBE TP SCH ×2 (10:17→21:34)
[2018-07-25] MEDS: AMMONIUM LACTATE 12% LOTION 225 GM BOTTLE TP SCH (10:17)
[2018-07-25] MEDS: NICOTINE 14 MG/24 HOURS TOPICAL PATCH TD SCH (10:17)
--- NOTE | 2018-07-25 12:15 | PN ---
[facility] Progress Note Note: PT WILL COMPLETE REHAB TOMORROW AND HAS BEEN REFERRED TO [facility]) IN THE MORNING. [facility] ELECTRONICALLY SENT TO [facility] FOR PICKUP FOR TREATMENT FACILITY. Vital Signs - 24 hr 07/25/18 07/25/18 07/25/18 00:30 03:30 07:13 Temperature 97.8 F Pulse Rate 71 Respiratory 18 18 18 Rate Blood Pressure 136/87 NAD
[2018-07-25] MEDS: ATORVASTATIN CA 40 MG TABLET (FP) PO SCH (21:34)
[2018-07-25] MEDS: THIAMINE HCL 100 MG TABLET (FP) PO SCH (21:34)
[2018-07-25] MEDS: TAMSULOSIN HCL 0.4 MG CAP PO SCH (21:35)
[2018-07-26] MEDS: ASPIRIN 81 MG CHEWABLE TABLETS PO SCH (06:33)
[2018-07-26] MEDS: ISOSORBIDE MONONITRATE 30 MG TAB.SR.24H (FP) PO SCH (06:33)
[2018-07-26] MEDS: ENALAPRIL MALEATE 10 MG TABLET (FP) PO SCH (06:33)
[2018-07-26] MEDS: NIFEdipine E.R 60 MG TABLET (UD) PO SCH (06:33)
[2018-07-26 07:22] VITALS: BP 157/100; PULSE 83; TEMP 98.7
[2018-07-26] MEDS: PRENATAL VITAMINS W/ FOLIC ACID TABLET (FP) PO SCH (09:35)
[2018-07-26] MEDS: NICOTINE 14 MG/24 HOURS TOPICAL PATCH TD SCH (09:36)
[2018-07-26] MEDS: TOLNAFTATE 1% CREAM 15 GM TUBE TP SCH (09:36)
[2018-07-26] MEDS: AMMONIUM LACTATE 12% LOTION 225 GM BOTTLE TP SCH (09:36)
--- NOTE | 2018-07-26 10:56 | PN ---
[facility] Progress Note Note: MEDICAL DISCHARGE NOTES: PT HAS SUCCESSFULLY COMPLETED REHAB AND REFERRED TO [facility] FOR AFTERCARE CONTINUED CARE. PT REPORTS HIS PCP WAS RECENTLY SWITCH BY HIS INSURANCE COMPANY AND HAS NEVER MET THE DOCTOR(AUDRA NATH) ON HIS CARD. PT PLANS TO CALL INSURANCE TO SWITCH TO A DOCTOR NEAR LOCATION THAT HE WILL FINALLY BE RESIDING AFTER CD TREATMENT. ALERT O X 3. DENIES ANY MEDICAL/ PSYCH DISCOMFORT. [facility] FOR ONE MONTH MADE AVALABLE FOR PT TO GO INTO TREATMENT ABOVE TODAY PLANNED. Vital Signs 07/26/18 07/26/18 03:30 07:21 Temperature 98.7 F Pulse Rate 83 Respiratory 17 18 Rate Blood Pressure 157/100 NAD MEDICALLY STABLE PLAN:FOLLOW UP AT [facility] FOR AFTERCARE RECOMMENDATION TODAY FOLLOW UP WITH A PCP FOR MEDICAL MANAGEMENT RECOMMENDED.
== END 2018-07-26 09:45 | disposition home or self-care (01) | DRG 772 ==
LOC: YASAS 20:27 → Y5N 21:57
PROVIDERS: ADMIT Psychiatry & Neurology Psychiatry; ATTEND Psychiatry & Neurology Psychiatry
PROC: HZ42ZZZ Group Counseling for Substance Abuse Treatment, Cognitive-Behavioral (ICD-10-PCS; principal; 2018-07-09)
DX: F10.20 Alcohol dependence, uncomplicated (principal); F13.20 Sedative, hypnotic or anxiolytic dependence, uncomplicated; F14.20 Cocaine dependence, uncomplicated; F17.210 Nicotine dependence, cigarettes, uncomplicated; F43.10 Post-traumatic stress disorder, unspecified; F19.24 Other psychoactive substance dependence with psychoactive substance-induced mood disorder; F19.282 Other psychoactive substance dependence with psychoactive substance-induced sleep disorder; B35.3 Tinea pedis; L98.8 Other specified disorders of the skin and subcutaneous tissue; R07.9 Chest pain, unspecified; Z59.0 Homelessness

== ENCOUNTER 2018-10-10 13:13 | Emergency (ER) | payer OTHER ==
[2018-10-10 13:24] VITALS: BP 154/102; PULSE 84; TEMP 98.1; BMI 30.8
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
== END 2018-10-10 14:55 | disposition home or self-care (01) ==
LOC: JERFT 13:13
DX: I10 Essential (primary) hypertension (principal); Z76.0 Encounter for issue of repeat prescription; Z59.0 Homelessness
CPT/HCPCS: 99281-25